=== PATIENT | male | born 1940 | race Caucasian/White ===

== ENCOUNTER 2016-05-10 14:00 | Emergency (ER) | payer OTHER, BC ==
[~2016-05-10] VITALS: Ht 162.6 cm; Wt 88.0 kg
[~2016-05-10 14:00] MED LIST: ACETAMINOPHEN-1 EAC3 PO; ACETAMINOPHEN325 M1 PO; ALLOPURINOL 30300 M2 PO; AVODART0.5 MG PO; CARDURA4 MG PO; CIPROFLOXACIN500 M1 PO; COUMADIN 4 MG TA4 M1 PO; COUMADIN6 MG PO; DILTIAZEM ER240 M1 PO; FLEXERIL PO; GEMFIBROZIL 60600 MG PO; GLYCOLAX POWDER17 G1 PO; IBUPROFEN 600600 M1 PO; INVANZ 1GM/NS 101 GM IV; LOPERAMIDE 2 MG2 MG PO; SYNTHROID100 MCG PO; TYLENOL P.M. E1 EAC3; ULTRAM 50MG TAB50 MG PO; [UNRECOGNIZED DRUG - OTHER] PO
[2016-05-10] MEDS ORDERED: COUMADIN 4 MG TA4 M1 PO (14:16)
[2016-05-10 15:08] LABS: ABSOLUTE NEUTROPHILS 3.4 thou/uL (1.4-8.2); BASOPHILS 1.2 % (0.0-2.0); EOSINOPHILS 6.9 % (0.0-3.0); HEMATOCRIT 42.2 % (42.0-52.0); HEMOGLOBIN 14.6 gm/dL (14.0-18.0); LYMPHOCYTES 15.7 % (24.0-44.0); MCHC 34.6 g/dL (28.0-37.0); MCV 95.2 fL (80.0-100.0); MONOCYTES 8.5 % (1.0-8.0); PLATELET COUNT 191 thou/uL (150-400); POLYS 67.7 % (36.0-66.0); RBC 4.43 mil/uL (4.50-6.00); RDW 13.5 % (10.5-14.5)
[2016-05-10 15:10] LABS: MANUAL DIFF NO
[2016-05-10 15:13] LABS: URINE BILIRUBIN NEGATIVE (Negative); URINE BLOOD NEGATIVE (Negative); URINE COLOR YELLOW; URINE GLUCOSE-RANDOM* NEGATIVE (Negative); URINE KETONES NEGATIVE (Negative); URINE LEUKOCYTES-REFLEX NEGATIVE (Negative); URINE PROTEIN (DIPSTICK) NEGATIVE (Negative); URINE UROBILINOGEN 0.2 E.U./dl (0.2-1.0)
[2016-05-10 15:20] LABS: CALCIUM 9.2 mg/dL (8.5-10.1); POTASSIUM 3.9 mmol/L (3.5-5.1)
[2016-05-10 15:24] LABS: ALBUMIN 4.1 g/dL (3.4-5.0); DIRECT BILIRUBIN 0.1 mg/dL (<0.1-0.3); TOTAL BILIRUBIN 0.4 mg/dL (<0.1-1.0); TOTAL PROTEIN 7.4 g/dL (6.4-8.2)
[2016-05-10 16:02] LABS: PROTIME 20.4 Seconds (9.3-11.4)
[2016-05-10] MEDS ORDERED: IBUPROFEN 600600 M1 PO (16:06)
== END 2016-05-10 16:32 | disposition home or self-care (01) ==
LOC: ER 14:00
PROVIDERS: Emergency Medicine
DX: S16.1XXA Strain of muscle, fascia and tendon at neck level, initial encounter (principal); I10 Essential (primary) hypertension; Z90.89 Acquired absence of other organs; V49.9XXA Car occupant (driver) (passenger) injured in unspecified traffic accident, initial encounter; Y93.I9 Activity, other involving external motion; Y92.488 Other paved roadways as the place of occurrence of the external cause; Y99.9 Unspecified external cause status

== ENCOUNTER → 2018-03-01 | Outpatient (CLI) | payer OTHER, BC | LOC: RAD 14:57 | DX: J84.10 Pulmonary fibrosis, unspecified (principal); R05 Cough ==

== ENCOUNTER → 2018-08-02 | Outpatient (CLI) | payer OTHER, BC ==
[~2018-08-02] VITALS: Ht 165.1 cm; Wt 88.0 kg
[~2018-08-02] MED LIST changes: +FINASTERIDE5 MG PO; +FLOMAX0.4 MG PO; +LOSARTAN POTASS50 MG PO
[2018-08-02 07:43] VITALS: BP 139/73
--- NOTE | 2018-08-02 09:16 | EKG ---
[place] [address] [facility] [place] [address] ELECTROCARDIOGRAM REPORT Name: RODNEY HANNA Room #: REG CLI [facility]#: [id number] ������������������ Admission: 08/02/18 ������������������ Attend Phys: Richy Banks MD, Discharge: ������������������ Date of : 36 Report #: [id number] ����������������������������������������������������������������� [id number] THIS REPORT FOR: //name// [facility] Test Date: 2018-08-02 Test Time: 07:35:45 Pat Name: RODNEY HANNA Department: Room: Gender: Windshield Installer: Louise BREWER : 1940 Requested By: Richy Banks Order Number: [id number] MD: Richy Banks Measurements Intervals [place] Rate: 63 P: 20 MS: 233 QRS: 25 QRSD: 93 T: 58 QT: 443 QTc: 454 Interpretive Statements Sinus rhythm Prolonged MS interval Abnormal R-wave progression, early transition Compared to ECG 12/30/2011 20:45:50 First degree AV block now present Sinus tachycardia no longer present Electronically Signed On 08-02-2018 9:16:38 CDT by Richy Banks [email or web address] ��������������������������������������������� <ELECTRONICALLY SIGNED> ���������������������������������������� By: Richy Banks MD, [facility] ��������������������������������������������� 08/02/18 0916 0735 0735 Richy Banks MD, [facility] /EPI
--- NOTE | 2018-08-02 09:24 | CATHLAB ---
[facility] [address] [place] [address] INVASIVE PROCEDURE REPORT Name: RODNEY HANNA Room #: REG CL [facility]#: [id number] ������������� Admission: 08/02/18 ������������� Attend Phys: Richy Banks, Discharge: ��� ������������� ��� Date of : 36 Date of Service: 08/02/18 0923 �� Report #: [id number] �������� ��������������������������������������������[id number] THIS REPORT FOR: //name// APPROVED REPORT Study performed: 08/02/2018 07:53:12 Patient Details The patient is a 78 year-old male Event Personnel Richy Banks Airframe And Power Plant Mechanic, Clara Ignacio RN RN, Felipe Matt RN, Angelia Tovar Monitor Procedures Performed Coronary Angiography Only [id number] [facility] Supravalvular Aortography Injection [id number] ISVA Indication Chest pain Procedure Narrative The Right Groin^ was infiltrated with 1% Lidocaine subcutaneous anesthesia. A PINNACLE 6FR Sheath #[id number] sheath was inserted into the RFA^. Coronary angiography was performed using coronary diagnostic catheters. The right coronary system was accessed and visualized with a JR5 catheter. The left coronary system was accessed and visualized with a JL4 catheter. An aortogram of the ascending aorta was performed. Closure device was deployed with a Fr MYNXGRIP 6/7F #[id number]. The patient tolerated the procedure well and there were no complications associated with the procedure. There was no hematoma. Intraoperative Conscious Sedation Sedation start time: 0800 Case end Time: 0835 Fentanyl 50 mcg Versed 1 mg Fluoro Time: 11.38 minutes Dose: DAP 62420.00 cGycm2 1798 mGy Contrast Type and Amount: Omnipaque 160 ml Coronary Angiography The patient's coronary anatomy is right dominant. [facility] [address] [place] [address] INVASIVE PROCEDURE REPORT Name: JACQUESRODNEYCHELSY PLUMMER Room #: REG CL [facility].#: [id number] ������������� Admission: 08/02/18 ������������� Attend Phys: Richy Banks, Discharge: ��� ������������� ��� Date of : 36 Date of Service: 08/02/18 0923 �� Report #: [id number] �������� ��������������������������������������������[id number] Diagnostic Cath Left Main Normal left main LAD Moderate 50% mid LAD stenosis. The LAD beyond this was not especially large in caliber. Diagonal 1 First diagonal branch was moderate in size and free of occlusive disease. Circumflex The circumflex was relatively small and nondominant OM1 First marginal branch exhibited mild proximal plaquing, small in caliber Right Coronary The right coronary was dominant and large in caliber. Angiographically normal R PDA Large posterior descending branch, angiographically normal RPLV Large posterolateral branch, angiographically normal Ramus Moderately large ramus branch with minimal 10-20% proximal plaquing Left Ventriculography Left Ventriculography was not performed. Supravalvular aortography demonstrated a calcified and trileaflet aortic valve. Mild aortic insufficiency. Mild dilatation of the ascending aorta. No dissection. Hemodynamics The aortic pressure is 177/66 mmHg with a mean of 107 mmHg. Conclusion 1. Moderate calcific aortic stenosis by echocardiography 2. Normal left main 3. LAD 50% mid vessel stenosis 3. Mild plaquing in non-dominant circumflex 4. RCA angiographically normal, dominant Recommendations Aggressive Medical Therapy ��������������������������������������������� <ELECTRONICALLY SIGNED> ���������������������������������������� By: Richy Banks MD, FACC ��������������������������������������������� 08/02/18922 2 2 Richy Banks MD, FAC /INF
== END | disposition home or self-care (01) ==
LOC: CATH 06:50
DX: I25.10 Atherosclerotic heart disease of native coronary artery without angina pectoris (principal); I35.0 Nonrheumatic aortic (valve) stenosis; I10 Essential (primary) hypertension; E78.5 Hyperlipidemia, unspecified; K21.9 Gastro-esophageal reflux disease without esophagitis; I42.9 Cardiomyopathy, unspecified; I48.91 Unspecified atrial fibrillation; G47.30 Sleep apnea, unspecified; Z79.01 Long term (current) use of anticoagulants; Z98.41 Cataract extraction status, right eye; Z87.891 Personal history of nicotine dependence; Z82.49 Family history of ischemic heart disease and other diseases of the circulatory system; Z98.42 Cataract extraction status, left eye; Z98.890 Other specified postprocedural states; Z87.442 Personal history of urinary calculi; Z79.899 Other long term (current) drug therapy

== ENCOUNTER 2019-03-25 06:52 | Inpatient (IN) | payer OTHER, BC ==
[2019-03-25] VITALS (8 sets, daily range): BP systolic 109–156; BP diastolic 60–94
[~2019-03-25] VITALS: Ht 162.6 cm; Wt 90.1 kg
[2019-03-25 07:36] LABS: ABSOLUTE NEUTROPHILS 10.2 thou/uL (1.4-8.2); BASOPHILS 1.2 % (0.0-2.0); EOSINOPHILS 0.9 % (0.0-3.0); HEMATOCRIT 40.6 % (42.0-52.0); HEMOGLOBIN 13.7 gm/dL (14.0-18.0); MCH 33.6 pg (26.0-34.0); MCHC 33.7 g/dL (28.0-37.0); MCV 99.7 fL (80.0-100.0); MONOCYTES 5.1 % (1.0-8.0); PLATELET COUNT 169 thou/uL (150-400); POLYS 88.8 % (36.0-66.0); RBC 4.07 mil/uL (4.50-6.00); RDW 13.5 % (10.5-14.5); WBC 11.5 thou/uL (4.0-11.0)
[2019-03-25] MEDS ORDERED: MELATONIN3 M1 PO (07:40)
[2019-03-25 07:43] LABS: CALCIUM 9.3 mg/dL (8.5-10.1); CREATININE 1.1 mg/dL (0.7-1.3); INR 2.9; POTASSIUM 3.9 mmol/L (3.5-5.1); PROTIME 30.3 Seconds (9.3-11.4)
[2019-03-25 07:49] LABS: ALBUMIN 4.3 g/dL (3.4-5.0); TOTAL BILIRUBIN 0.6 mg/dL (<0.1-1.0); TOTAL PROTEIN 8.1 g/dL (6.4-8.2)
[2019-03-25 08:22] LABS: URINE BILIRUBIN NEGATIVE (Negative); URINE BLOOD TRACE (Negative); URINE CLARITY CLEAR; URINE COLOR YELLOW; URINE GLUCOSE-RANDOM* NEGATIVE (Negative); URINE KETONES NEGATIVE (Negative); URINE LEUKOCYTES-REFLEX TRACE (Negative); URINE NITRITE-REFLEX NEGATIVE (Negative); URINE PROTEIN (DIPSTICK) NEGATIVE (Negative); URINE UROBILINOGEN 0.2 E.U./dl (0.2-1.0)
[2019-03-25 14:26] LABS: INR 1.6; PROTIME 16.2 Seconds (9.3-11.4)
--- NOTE | 2019-03-25 16:16 | NUR ---
DR FLORES IN TO SEE PT AND TALK ABOUT THE SURGERY. CONSENT SIGNED, AT SIDE, PT WAITING
[2019-03-26 05:01] LABS: HEMATOCRIT 29.7 % (42.0-52.0); MCH 33.9 pg (26.0-34.0); MCHC 33.2 g/dL (28.0-37.0); MCV 102.3 fL (80.0-100.0); RBC 2.9 mil/uL (4.50-6.00); RDW 13.8 % (10.5-14.5)
[2019-03-26 05:06] LABS: HEMOGLOBIN 9.9 gm/dL (14.0-18.0)
[2019-03-26 05:11] VITALS: BP 93/56
--- NOTE | 2019-03-26 05:12 | NUR ---
ASSUMED PT CARE AT 1900. PT IS ALERT AND ORIENTED. SPOUSE AND BEDSIDE. PT JUST RETURNED FOR SURGERY. RITA DRAIN IN PLACE. PT IS STABLE. VITAL SIGNS STABLE. PT VERBALIZES PAIN. TYLENOL ADMINISTERED WITH NO RELEIVE. OXYCODONE ADMINISTERED AND ALSO NAUSEA MEDICATION. PT IS STABLE. ASSESSMENT COMPLETED AND DOCUMENTED. EDCUATION ON EARLY AMBULATION IS DISCUSSED WITH PATIENT. SCHEDULED MEDS ADMINISTERED TO PT. TOLERATES INTAKE. DENIES ANY FURTHER NEEDS AT THIS TIME.
[2019-03-26 05:13] LABS: ALBUMIN 3.1 g/dL (3.4-5.0); CALCIUM 7.8 mg/dL (8.5-10.1); PHOSPHORUS 5.7 mg/dL (2.5-4.9); POTASSIUM 4.1 mmol/L (3.5-5.1)
[2019-03-26 05:15] LABS: CREATININE 2.5 mg/dL (0.7-1.3)
[2019-03-26 05:17] LABS: INR 1.3; PROTIME 12.6 Seconds (9.3-11.4)
[2019-03-26 12:00] VITALS: BP 108/51
[2019-03-26 13:56] LABS: HEMOGLOBIN 8.5 gm/dL (14.0-18.0); MCH 34.1 pg (26.0-34.0); MCHC 33.9 g/dL (28.0-37.0); MCV 100.6 fL (80.0-100.0); RBC 2.49 mil/uL (4.50-6.00); RDW 13.5 % (10.5-14.5); WBC 12.9 thou/uL (4.0-11.0)
[2019-03-26 14:19] LABS: ALBUMIN 3.1 g/dL (3.4-5.0); CREATININE 2.2 mg/dL (0.7-1.3); PHOSPHORUS 4.1 mg/dL (2.5-4.9); POTASSIUM 3.8 mmol/L (3.5-5.1)
[2019-03-26 16:00] VITALS: BP 118/54
--- NOTE | 2019-03-26 16:04 | NUR ---
ASSUMED CARE OF PT APPROX 1600 PREVIOUS RN NEEDED TO GO TO FILL IN A VOID IN ICU, GAVE PT'S ANTIEMETIC AND PAIN MEDICATION. PT HAS AMB IN HALLS SEVERAL TIMES. SPOUSE AT BEDSIDE. ENCOURAGED HIM TO USE CALL LIGHT FOR ANY NEEDS. SHIPMAN JUST PLACED FOR RETENTION PER REPORT. PT IN GOOD SPIRITS, WANTS TO NAP BEFORE THE GAME.
[2019-03-26 20:10] VITALS: BP 109/55
[2019-03-26 20:34] LABS: HEMATOCRIT 23.7 % (42.0-52.0); MCHC 33.6 g/dL (28.0-37.0); MCV 101.1 fL (80.0-100.0); RBC 2.34 mil/uL (4.50-6.00); RDW 13.9 % (10.5-14.5); WBC 11.9 thou/uL (4.0-11.0)
[2019-03-27 04:33] LABS: HEMATOCRIT 22.9 % (42.0-52.0); HEMOGLOBIN 7.7 gm/dL (14.0-18.0); MCH 34.2 pg (26.0-34.0); MCHC 33.7 g/dL (28.0-37.0); MCV 101.5 fL (80.0-100.0); RBC 2.26 mil/uL (4.50-6.00); RDW 13.8 % (10.5-14.5); WBC 11.3 thou/uL (4.0-11.0)
[2019-03-27 04:53] LABS: ALBUMIN 2.9 g/dL (3.4-5.0); CALCIUM 7.4 mg/dL (8.5-10.1); CREATININE 1.3 mg/dL (0.7-1.3); PHOSPHORUS 2.4 mg/dL (2.5-4.9); POTASSIUM 3.6 mmol/L (3.5-5.1)
--- NOTE | 2019-03-27 05:01 | NUR ---
ASSUMED PT CARE AT 1900. PT IS ALERT AND ORIENTED WITH NO SIGN OF DISTRESS NOTED IN PT. VERBALIZES PAIN AT INCISION SITE. PAIN MED ADMINISTERED TO PT. ASSESSMENT COMPLETED AND DOCUMENTED. SCHEDULED MEDS ADMINISTERED TO PT. TOLERATED PI INTAKE. PT BECOMES NAUSEATED AND ZOFRAN ADMINISTERED. GREEN EMESIS IS NOTED. PAIN MEDICATION ADMINISTERED. RITA DRAIN IN PLACE WITH OUTPUT OF 250CC. NO FURTHER NEEDS AT THIS TIME. CONTINUE TO MONITOR PATIENT.
[2019-03-27 05:15] VITALS: BP 122/60
[2019-03-27 07:16] LABS: INR 1.1; PROTIME 11.2 Seconds (9.3-11.4)
[2019-03-27 07:30] VITALS: BP 123/66
[2019-03-27 09:41] LABS: HEMATOCRIT 21.6 % (42.0-52.0); HEMOGLOBIN 7.3 gm/dL (14.0-18.0)
[2019-03-27 11:00] VITALS: BP 107/51
[2019-03-27 14:11] LABS: HEMATOCRIT 21.4 % (42.0-52.0); HEMOGLOBIN 7.3 gm/dL (14.0-18.0)
[2019-03-27 14:32] VITALS: BP 107/51; BP 135/60; BP 139/56
--- NOTE | 2019-03-27 14:38 | NUR ---
ASSUMED CARE OF PATIENT APPROX 0700. PT A&OX4, VSS, PAIN IN ABDOMEN RIGHT SIDE. PATIENT COMPLETED CT. PATIENT IS NPO THOUGHOUT DAY PER DOCTOR. APPROX 285 SANGUINEOUS DRANAIGE FROM RITA DRAIN. NO SIGNS OF DISTRESS WILL CONTINE TO MONITOR.
[2019-03-27 16:00] VITALS: BP 131/57
--- NOTE | 2019-03-27 17:46 | NUR ---
DR LONDON CANCEL TRANSFER TO MED/SURG FLOOR PT TO REMAIN ON CCU AND TELE.
--- NOTE | 2019-03-27 18:52 | NUR ---
MYSELF AND NUCLEAR MEDICINE TECHNOLOGIST CHANDA TRIED TO ESTABLISH NG TUBE BUT WHERE UNSUCCESSFUL. ER WILL SEND UP SMALLEST NG TUBE AND I WILL INSTRUCT NIGHT RN TO TRY AGAIN.
[2019-03-27 19:07] LABS: HEMATOCRIT 26.3 % (42.0-52.0); HEMOGLOBIN 8.9 gm/dL (14.0-18.0)
[2019-03-27 19:58] VITALS: BP 117/54
[2019-03-28 02:09] LABS: HEMATOCRIT 24.4 % (42.0-52.0); HEMOGLOBIN 8.2 gm/dL (14.0-18.0)
--- NOTE | 2019-03-28 05:05 | NUR ---
ASSUMED PT CARE AT 1900. PT IS ALERT AND ORIENTED WITH NO SIGN OF DISTRESS NOTED IN PT. NGT IN PLACE. PLACEMENT CONFIRMED. ASSESSMENT COMPLETED AND DOCUMENTED. RITA DRIAN IN PLACE. PAIN MED ADMINISTERED. SCHEDULED MEDS ADMINISTERED TO PT. RITA DRAIN CONTINUES TO DRAIN A LOT OF SANGINOUS DRAINAGE. CONTINUE TO MONITOR PATIENT. DENIES ANY FURTHER NEEDS AT THIS TIME.
[2019-03-28 05:37] VITALS: BP 139/69
[2019-03-28 07:25] VITALS: BP 159/76
[2019-03-28 11:45] VITALS: BP 147/66
[2019-03-28 13:56] LABS: HEMOGLOBIN 8.1 gm/dL (14.0-18.0)
[2019-03-28 16:05] VITALS: BP 152/48
--- NOTE | 2019-03-28 16:12 | NUR ---
Patient admits with acute appendicits, post op lap appy and ileus. Patient A/Ox4 with ng tube. patient resides at home with spouse. He reports steps in home and no difficulty with steps. Cont to drive and independent with adls and self care. He is discouraged with illness. Encouragement offered. Supportive family, 3 children. Therapy evals in process.
--- NOTE | 2019-03-28 16:22 | 2DMMODE ---
[facility] [address] [place] [address] 2 D/M-MODE ECHOCARDIOGRAM Name: RODNEY HANNA Room #: 213-P ADM IN M.R.#: [id number] Admission: 03/25/19 Attend Phys: Oseas Acosta MD Discharge: Date of : 36 Report #: [id number] THIS REPORT FOR: cc: Rene Daniels MD, Rene P. MD Lundgren, Craig H. MD [facility] ~ THIS REPORT FOR: //name// APPROVED REPORT Study performed: 03/28/2019 12:10:39 EXAM: Comprehensive 2D, Doppler, and color-flow Echocardiogram Patient Location: Bedside Room #: 213 Status: routine BSA: 1.92 HR: 76 bpm BP: 123/66 mmHg Rhythm: NSR Other Information Study Quality: Adequate Indications Atrial Fibrillation Hypertension/HDD 2D Dimensions RVDd: 38.63 mm IVSd: 10.78 (7-11mm) LVOT Diam: 23.27 (18-24mm) LVDd: 45.70 mm PWd: 11.06 (7-11mm) Ascending Ao: 30.12 (22-36mm) LVDs: 34.34 (25-40mm) Aortic Root: 33.18 mm Volumes Left Atrial Volume (Systole) Single Plane 4CH: 55.44 mL Single Plane 2CH: 84.00 mL LA ESV Index: 38.00 mL/m2 Aortic Valve AoV Peak Ziyad.: 3.88 m/s AO Peak Gr.: 60.14 mmHg LVOT Max P.27 mmHg [facility] [address] [place] [address] 2 D/M-MODE ECHOCARDIOGRAM Name: RODNEY HANNA Room #: 213-P [facility] IN M.R.#: [id number] Admission: 03/25/19 Attend Phys: Pamela Cody Discharge: Date of : 36 Report #: [id number] AO Mean Gr.: 34.17 mmHg LVOT Mean P.07 mmHg AO V2 Mean: 2.79 m/s LVOT Max V: 1.35 m/s AO V2 VTI: 96.71 cm LVOT Mean V: 0.97 m/s TOMMIE (VTI): 1.47 cm2 LVOT V1 VTI: 33.46 cm TOMMIE Vmax: 1.48 cm2 SV (LVOT): 142.25 mL Mitral Valve E/A Ratio: 0.9 MV Decel. Time: 147.17 ms MV E Max Ziyad.: 1.26 m/s MV A Ziyad.: 1.38 m/s MV PHT: 42.68 ms IVRT: 50.75 ms Pulmonary Valve PV Peak Ziyad.: 1.28 m/s PV Peak Gr.: 6.57 mmHg Pulmonary Vein P Vein S: 0.73 m/s P Vein A: 0.35 m/s P Vein D: 0.74 m/s P Vein A Dur.: 87.7 msec P Vein S/D Ratio: 0.99 Tricuspid Valve TR Peak Ziyad.: 3.33 m/s TR Peak Gr.: 44.24 mmHg PA Pressure: 44.00 mmHg Left Ventricle The left ventricle is normal size. There is normal LV segmental wall motion. There is normal left ventricular wall thickness. The left ventricular systolic function is normal. The left ventricular ejection fraction is within the normal range. LVEF is 55-60%. Mild diastolic dysfunction is present (impaired relaxation pattern). Right Ventricle The right ventricle is normal size. The right ventricular systolic function is normal. Atria Left atrium is dilated. Right atrium is at the upper limits of normal. Aortic Valve The aortic valve is moderately calcified, moderately stenotic. [address] [address] 2 D/M-MODE ECHOCARDIOGRAM Name: RODNEY HANNA Room #: 213-P [facility] IN ..#: [id number] Admission: 03/25/19 Attend Phys: Pamela Cody Discharge: Date of : 36 Report #: [id number] aortic regurgitation is present. Calculated aortic valve area is 1.5 cm2 with maximum pressure gradient of 60 mmHg and mean pressure gradient of 34 mmHg. Mitral Valve Mild mitral annular calcification Trace to mild mitral regurgitation. No evidence of mitral valve stenosis. Tricuspid Valve The tricuspid valve is normal in structure. There is mild tricuspid regurgitation. Pulmonary artery pressures approximately 50 mmHg There is moderate pulmonary hypertension. Pulmonic Valve The pulmonary valve is normal in structure. There is no pulmonic valvular regurgitation. Great Vessels The aortic root is normal in size. The inferior vena cava is not well visualized. Pericardium There is no pericardial effusion. <Conclusion> The left ventricular systolic function is normal. There is normal LV segmental wall motion. LVEF is 55-60%. Mild diastolic dysfunction The aortic valve is moderately calcified, moderately stenotic. No aortic insufficiency Calculated aortic valve area is 1.5 cm2 with maximum pressure gradient of 60 mmHg and mean pressure gradient of 34 mmHg. Mild mitral annular calcification. Trace to mild mitral regurgitation. There is mild tricuspid regurgitation. Pulmonary artery pressures approximately 50 mmHg There is no pericardial effusion. <ELECTRONICALLY SIGNED> By: Richy Banks MD, FACC 03/28/19 [phone] Richy Banks MD, FACC /INF
[2019-03-28 20:01] VITALS: BP 148/60
--- NOTE | 2019-03-28 20:33 | NUR ---
RECEIVED PT'S CARE AROUND 1300; PT. ON BED; AOX4; DURING ASSESSMENT C/O PAIN OVER ABDOMEN; PRN PAIN MEDICATION DUE; EDUCATED ABOUT PAIN MANAGEMENT; ST. UNDERSTANDING; HH 8.1; RITA DRAIN AROUND 15:00 OBTAINED 100 ML; DR. FLORES NOTIFIED; AT 17:00 75ML; AT 1830 30 ML; C/O ABDOMINAL; PRN PAIN MEDICATION GIVEN; PAIN RE-ASSESSMENT PT. ST. DECREASED PAIN; ST. PASSING FLATUS; ABDOMEN DISTENDED; BOWEL SOUNDS PRESENT; ASSESSMENT CHARGED; FOLLOWING POC; PASSED ON REPORT;
[2019-03-28 22:20] LABS: HEMATOCRIT 22.6 % (42.0-52.0); HEMOGLOBIN 7.7 gm/dL (14.0-18.0)
[2019-03-29] VITALS (7 sets, daily range): BP systolic 149–154; BP diastolic 58–74
--- NOTE | 2019-03-29 06:13 | NUR ---
ASSESSMENT: AT ONE TIME PT IS FRIENDLY, FLIRTY AND COMPLIANT WITH POC. OTHER TIMES PT IS CURSING STAFF, NOT WANTING TO COMPLY AND VOICING HIS OPINION OF HIS CARE. THIS RN GAVE MS 2MG AT 2130, EACH TIME AFTERWARDS PT REFUSED PAIN MEDICATION. IT WAS EXPLAINED TO PT THAT HE WAS NOT GOING TO BE AWAKEN TO SEE IF HE NEEDS PAIN MEDICATION OR IF HE WAS HAVING PAIN. PT EVEN ACCUSED THE TECH OF WATCHING TELEVISION IN HIS ROOM AND THAT "SHE SHOULD NOT BE PAID," WHEN ALL T STAFF MEMEBER WAS DOING WAS GETTING VSS AND WAITING FOR THE THE DYNAMAP TO CYCLE. THIS RN TOOK TIME OUT TO EXPLAIN ABOUT THE CALL BUTTONS, THE NPO STATUS, THE PRN STATUS AND TO UNDERSTAND THAT STAFF ARE DOING THEIR BEST TO CARE FOR EACH PT'S NEEDS. PLEASE ALL
[2019-03-29 07:04] LABS: HEMATOCRIT 24.1 % (42.0-52.0); HEMOGLOBIN 8.1 gm/dL (14.0-18.0)
[2019-03-29 09:03] LABS: ALBUMIN 2.6 g/dL (3.4-5.0); CALCIUM 7.3 mg/dL (8.5-10.1); CREATININE 0.8 mg/dL (0.7-1.3); PHOSPHORUS 1.8 mg/dL (2.5-4.9); POTASSIUM 3.3 mmol/L (3.5-5.1)
--- NOTE | 2019-03-29 16:37 | NUR ---
PT CARE ASSUMED APPROX 0700. ASSESSMENT CHARTED. DENIES SOA. REPORTS PAIN TO RITA DRAIN SITE. REPORTS ADEQUATE PAIN MANAGEMENT WITH MEDS. UP WITH MIN ASSIST. PT NGT CLAMPED ALL SHIFT AND PT TOLERATING. IVF AND MEDS GIVEN FOR CHANGES NOTED IN PT'S ELECTROLYTES. WILL MONITOR. PT TOLERATING POC. DENIES QUESTIONS OR CONCERNS REGARDING POC. NO DISTRESS NOTED.
[2019-03-30] VITALS (7 sets, daily range): BP systolic 106–169; BP diastolic 43–83
--- NOTE | 2019-03-30 07:39 | NUR ---
ASSUMED PT CARE AROUND 1915. PT WAS RESTING IN BED WITH C/O OF PAIN TO INCISIONAL AREA. PAIN MEDICATION GIVEN AND PT RESTED COMFORTABLY IN BED. PT WAS NOT HAPPY ABOUT BEING NPO AND WANTED ICE CHIPS. EDUCATED PT ON WHY NPO. PT ASSESSMENT CHARTED. WILL CONTINUE TO MONITOR PT PER PLAN OF CARE.
[2019-03-30 07:58] LABS: HEMOGLOBIN 8.5 gm/dL (14.0-18.0); MCHC 34.1 g/dL (28.0-37.0); MCV 99.9 fL (80.0-100.0); RBC 2.5 mil/uL (4.50-6.00); RDW 15.2 % (10.5-14.5); WBC 10.1 thou/uL (4.0-11.0)
[2019-03-30 08:06] LABS: ALBUMIN 2.7 g/dL (3.4-5.0); CALCIUM 7.5 mg/dL (8.5-10.1); PHOSPHORUS 1.5 mg/dL (2.5-4.9); POTASSIUM 3.5 mmol/L (3.5-5.1)
--- NOTE | 2019-03-30 08:57 | PATH ---
[facility] [address] [place] [address] PATHOLOGY RPT PROCEDURE Name: JACQUESRODNEYMYKE PLUMMER Room #: 213-P ADM IN M.R.#: [id number] Admission: 03/25/19 Date of : 36 Discharge: Report #: [id number] Path Case #: [id number] [facility] Accession Number: [id number] . 01 Material submitted: . appendix - APPENDIX . 01 Clinical history: . Acute appendicitis . 02 Diagnosis: Appendix, appendectomy: - Acute appendicitis and periappendicitis with focal rupture. (SK:[facility] 03/29/2019) [facility] 03/29/2019 0802 Local . 02 Electronically signed: . Tyree Daniels MD, Pathologist NPI- [id number] . 01 Gross description: . The specimen is received in formalin, labeled "Rodneymyke Hanna, appendix". Received in two pieces is a vermiform appendix measuring 9.3 cm in length by up to 0.5 cm in diameter upon reconstruction with a moderate amount of attached mesoappendix. The serosal surface is pale paiz to dusky rudd-paiz, shaggy in appearance. The surgical margin is closed with a line of kamille. The kamille are removed the new margin is inked black. Sectioning reveals a pinpoint to patent lumen, with a possible area of perforation/rupture located 6.0 cm from the proximal margin. The surrounding serosal surface is inked blue. The specimen is submitted representatively in cassettes A1 and A2, with the proximal margin and bisected tip submitted in cassette A1. The entire area of possible perforation/rupture is submitted in cassette A2. (CAA; 03/27/2019) QAC/QAC 03/27/2019 1421 Local . 02 Pathologist provided ICD-10: K35.80 . 02 CPT . 879496 Specimen Comment: A courtesy copy of this report has been sent to [phone] Specimen Comment: Report sent to Specimen Comment: A duplicate report has been generated due to demographic updates. Performed at: [address] [place] [address] PATHOLOGY RPT PROCEDURE Name: RODNEY HANNA Room #: 213-P ADM IN M.R.#: [id number] Admission: 03/25/19 Date of : 36 Discharge: Report #: [id number] Path Case #: [id number] [address] [place] [address] [address], [place], [place] [id number] MD Cornel Espinoza MD Phone: [phone] Performed at: [address] [id number] MD Leslie Hess MD Phone: [phone]
--- NOTE | 2019-03-30 16:27 | NUR ---
PT CARE ASSUMED APPROXIMATELY 0700. ASSESSMENTS CHARTED. DR MURRAY NOTIFIED ABOT LOW GRADE TEMPS. PT WALKED ON RA SATURATION 88. PT MEDICATIONS GIVEN CHARTED.
--- NOTE | 2019-03-30 19:24 | NUR ---
ASSUMED CARE OF PT APPROX, 1600. PT A&OX4. PT C/O PAIN RIGHT ABDOMEN, PAIN MEDICATION GIVEN. PATIENT REQUESTING ADVANCED DIET, DOCTOR PAGED. RITA DRAIN INTACT, SANGUINEOUS DRAINAGE. 3 LAP SITES FROM SURGERY C/D/I. NO SIGNS OF DISTRESS. WILL CONTINUE TO MONITOR.
--- NOTE | 2019-03-31 06:00 | NUR ---
No acute concerns overnight. pain to right upper quadrant controlled with current regimen. abdomen distended with hypoactive bowel sounds. pt has been tolerating clear liquid diet but would like to be advanced. Oneil drain intact and producing dark red liquid. a total of 200ml was collected from drain. on 3lnc. no s/s of acute distress. reports off to day shift rn
[2019-03-31 06:18] LABS: HEMATOCRIT 23.8 % (42.0-52.0); HEMOGLOBIN 8.1 gm/dL (14.0-18.0); MCH 33.7 pg (26.0-34.0); MCHC 34.1 g/dL (28.0-37.0); MCV 98.7 fL (80.0-100.0); PLATELET COUNT 218 thou/uL (150-400); RBC 2.41 mil/uL (4.50-6.00); RDW 15.2 % (10.5-14.5); WBC 9.1 thou/uL (4.0-11.0)
[2019-03-31 06:29] LABS: INR 1.1; PROTIME 11.4 Seconds (9.3-11.4)
[2019-03-31 06:41] LABS: CALCIUM 6.9 mg/dL (8.5-10.1); CREATININE 0.9 mg/dL (0.7-1.3); POTASSIUM 3.4 mmol/L (3.5-5.1)
[2019-03-31 08:13] LABS: ABSOLUTE NEUTROPHILS 7.1 thou/uL (1.4-8.2)
[2019-03-31 08:14] LABS: ANISOCYTOSIS 1+; MACROCYTES 1+; MICROCYTES 1+; PLATELET ESTIMATE NORMAL
--- NOTE | 2019-03-31 08:20 | NUR ---
Assess due to length of stay. S/P appendicitis and post op ileus. Had been npo/liquids x 6 days and diet newly advanced today. Low nutrition risk
[2019-03-31 09:15] VITALS: BP 120/46
[2019-03-31 15:05] VITALS: BP 107/69
[2019-03-31 15:10] VITALS: BP 164/67
--- NOTE | 2019-03-31 15:47 | NUR ---
DISCHARGE ANTICIPATED TO HOME WITH HOME HEALTH SERVICES TOMORROW. PATIENT REFERRAL [facility]ED TO [facility] PER REQUEST. CALL PLACED TO [facility] INTAKE, SPOKE WITH NEVIN DELEON. ADRIENNE TO FACILITATE PATIENTS HH NEEDS ONCE DISCHARGE/HOME HEALTH ORDERS OBTAINED. SHOULD PATIENT DISCHARGE TOMORROW, PLEASE FAX DISCHARGE/HH ORDERS AND DISCHARGE SUMMARY TO [phone]. [facility] CONTACT NUMBER IS [phone]. THANK YOU.
[2019-03-31 15:50] VITALS: BP 164/67
[2019-03-31 19:28] VITALS: BP 149/53
--- NOTE | 2019-03-31 19:30 | NUR ---
Assumed patient care at 0715. Vital signs have been stable. Acetaminophen 650mg po is scheduled for pain with minimal change. RITA Drain has had moderate output (see I & O's); serosanginious. IV Fluids discontinued this am, he was put on a regular diet. Patient has did well with fluid intake, has poor appetite at this time. He has expressed "worry" about being discharged "too soon." Bladder scanned per nursing technician and her instructor with verbal order from Dr Acosta. Bladder scan measured 443cc of urinary retention. Patient has been urinating fairly well and has refused to allow straight cath procedure. Patient is now on room air with no noted shortness of breath. IV in right forearm infiltrated this evening. Will attempt to access new site. On-coming nurse notified.
--- NOTE | 2019-04-01 05:15 | NUR ---
Pt had 3large loose stools overnight.abdomen still distended with active bs. sats have been fine without oxygen use. RUQ pain controlled with current regimen. ibrahima drain in place and intact. 100ml emptied from it. no s/s of distress. will cont to monitor
[2019-04-01 06:13] LABS: HEMATOCRIT 25.1 % (42.0-52.0); HEMOGLOBIN 8.4 gm/dL (14.0-18.0); MCH 33.4 pg (26.0-34.0); MCHC 33.5 g/dL (28.0-37.0); MCV 99.5 fL (80.0-100.0); RBC 2.52 mil/uL (4.50-6.00); WBC 8.4 thou/uL (4.0-11.0)
[2019-04-01 06:28] LABS: ALBUMIN 2.5 g/dL (3.4-5.0); CALCIUM 7.8 mg/dL (8.5-10.1); CREATININE 0.9 mg/dL (0.7-1.3); MAGNESIUM 2.3 mg/dL (1.8-2.4); PHOSPHORUS 2.9 mg/dL (2.5-4.9); POTASSIUM 4.1 mmol/L (3.5-5.1)
[2019-04-01 08:27] VITALS: BP 115/56
[2019-04-01 14:34] VITALS: BP 125/54
--- NOTE | 2019-04-01 18:30 | NUR ---
Assumed patient care at 0715. Vital signs stable. Pain is well managed with scheduled Acetaminophen. Patient has been urinating without difficulty. He has had two loose stools in the toilet. Patient is tolerating IV Antibiotics well. He does not like the meals here but has been requesting and receiving milk several x's a day. POC followed. at bedside this evening. Plan is to Discharge tomorrow or Wednesday. Will report to on-coming nurse.
[2019-04-01 19:19] VITALS: BP 134/55
--- NOTE | 2019-04-02 06:50 | NUR ---
Pt. rested quietly at intervals during the night when checked on during frequent rounds. Pain meds given for c/o abdominal pain (see emar) with some relief noted. He has been having some loose stools, but they seemed to have slowed down this am. Up to the bathroom with stand by assistance.
[2019-04-02 08:17] LABS: PROTIME 10.7 Seconds (9.3-11.4)
[2019-04-02 08:41] VITALS: BP 125/56
[2019-04-02 09:55] LABS: HEMATOCRIT 25.6 % (42.0-52.0); HEMOGLOBIN 8.4 gm/dL (14.0-18.0)
--- NOTE | 2019-04-02 11:16 | NUR ---
Assumed pt care at 7am.Pt in bed very anxious to discuss dc plan with Dr Lan today.Assessment completed.vss.Pt tolerated meds an diet.60ML bloody drainage emtied from ibrahima early this shift.Dr Lan here,no new order noted but he said pt will dc home tomorrow.Pt notified.Assisted pt to br some minutes ago for bm.No further c/o. Will continue to monitor.
[2019-04-02 16:30] VITALS: BP 135/52
[2019-04-02 19:23] VITALS: BP 132/86
--- NOTE | 2019-04-03 06:03 | NUR ---
Pt. rested quietly at intervals during the night when checked on during frequent rounds. He c/o abdominal pain and was given po pain meds (see emar) with some relief noted. Melatonin also given for c/o insomnia. Oneil drain intact to abdomen.
[2019-04-03 08:00] VITALS: BP 145/54
[2019-04-03] MEDS ORDERED: FLOMAX0.4 MG PO (13:00)
[2019-04-03] MEDS ORDERED: ACETAMINOPHEN325 M1 PO (13:00)
[2019-04-03] MEDS ORDERED: LOSARTAN POTASS50 MG PO (13:02)
[2019-04-03] MEDS ORDERED: COUMADIN 2 MG TA2 M1 PO (13:02)
[2019-04-03] MEDS ORDERED: KLOR-CON M2020 MEQ PO (13:15)
[2019-04-03] MEDS ORDERED: AUGMENTIN 875-1 EACH PO (13:15)
[2019-04-03 13:20] VITALS: BP 164/67
--- NOTE | 2019-04-03 20:49 | NUR ---
PT DISCHARGED HOME WITH HOME HEALTH, IV REMOVED. PATIENT GIVEN EDUCATION ON RITA DRAIN CARE. PT A&OX4, VSS, DENIED PAIN. NO SIGNS OF DISTRESS, IV REMOVED. ALL BELONGINGS WITH PATIENT.
--- NOTE | 2019-04-05 12:30 | EKG ---
[facility] [place] [address] [place] [address] ELECTROCARDIOGRAM REPORT Name: RODNEY HANNA Room #: 452-P [facility] IN M.R.#: [id number] Admission: 03/25/19 Attend Phys: Oseas Acosta MD Discharge: 04/03/19 Date of : 36 Report #: [id number] THIS REPORT FOR: cc: Rene Daniels MD, Rene P. MD Lundgren,Richy Fong MD [facility] ~ THIS REPORT FOR: //name// [facility] ED Test Date: 2019-03-25 Test Time: 09:11:27 Pat Name: RODNEY HANNA Department: Room: 213 Gender: M Leather Fitter: RIVERA : 1940 Requested By: Juan Francisco Ace Order Number: [id number] MD: Richy Banks Measurements Intervals [place] Rate: 91 P: 11 FL: 213 QRS: -8 QRSD: 97 T: 19 QT: 374 QTc: 461 Interpretive Statements Sinus rhythm Borderline prolonged FL interval Compared to ECG 08/02/2018 07:35:45 No significant changes Electronically Signed On 03-25-2019 9:51:10 SPINE SUPERVISOR by Richy Banks [email or web address] <ELECTRONICALLY SIGNED> By: Richy Banks MD, [facility] 03/25/19 0951 0 0 Richy Banks MD, [facility] /EPI
== END 2019-04-03 16:45 | disposition home health service (06) | DRG 338 ==
LOC: ER 06:52 → 2N 09:03 → EROBS 09:03 → 2N 09:20 → ENTRNSPT 03-30 16:43 → 4W 03-30 16:53 → CMPTRNSPT 03-31 12:28 → EDTRNSPTSTS 03-31 12:28 → ENTRNSPT 04-03 15:55 → 4W 04-03 16:45
PROVIDERS: Emergency Medicine; Surgery; ADMIT Hospitalist
PROC: 30233M1 Transfusion of Nonautologous Plasma Cryoprecipitate into Peripheral Vein, Percutaneous Approach (ICD-10-PCS; principal; 2019-03-25)
PROC: 0DTJ4ZZ Resection of Appendix, Percutaneous Endoscopic Approach (ICD-10-PCS; principal; 2019-03-25)
PROC: 0D9670Z Drainage of Stomach with Drainage Device, Via Natural or Artificial Opening (ICD-10-PCS; 2019-03-27)
PROC: 30233N1 Transfusion of Nonautologous Red Blood Cells into Peripheral Vein, Percutaneous Approach (ICD-10-PCS; 2019-03-27)
DX: K35.33 Acute appendicitis with perforation, localized peritonitis, and gangrene, with abscess (principal); E43 Unspecified severe protein-calorie malnutrition; N17.9 Acute kidney failure, unspecified; D68.9 Coagulation defect, unspecified; D62 Acute posthemorrhagic anemia; K56.7 Ileus, unspecified; E87.0 Hyperosmolality and hypernatremia; E89.0 Postprocedural hypothyroidism; I10 Essential (primary) hypertension; I48.91 Unspecified atrial fibrillation; G47.30 Sleep apnea, unspecified; M19.90 Unspecified osteoarthritis, unspecified site; E78.5 Hyperlipidemia, unspecified; E66.01 Morbid (severe) obesity due to excess calories; I35.9 Nonrheumatic aortic valve disorder, unspecified; R33.9 Retention of urine, unspecified; M10.9 Gout, unspecified; N40.1 Benign prostatic hyperplasia with lower urinary tract symptoms; R33.8 Other retention of urine; G47.00 Insomnia, unspecified; E83.39 Other disorders of phosphorus metabolism; E87.6 Hypokalemia; Z87.442 Personal history of urinary calculi; Z98.1 Arthrodesis status; Z98.41 Cataract extraction status, right eye; Z98.42 Cataract extraction status, left eye; Z79.01 Long term (current) use of anticoagulants; Z87.440 Personal history of urinary (tract) infections; Z86.19 Personal history of other infectious and parasitic diseases; Z79.899 Other long term (current) drug therapy; Z82.3 Family history of stroke; Z87.891 Personal history of nicotine dependence; Z68.34 Body mass index [BMI] 34.0-34.9, adult; Z80.8 Family history of malignant neoplasm of other organs or systems
CPT/HCPCS: 10047; 10081; 50010; 50101; 50249; 50411; 50555; 50558; 50739; 50740; 51489; 52265; 53307; 53310; 53312; 54022; 54118; 56462; 56525; 56526; 62110; 62900; 70005

== ENCOUNTER → 2019-08-01 | Outpatient (CLI) | payer OTHER, BC ==
[~2019-08-01] MED LIST changes: +AUGMENTIN 875-1 EACH PO; +COUMADIN 2 MG TA2 M1 PO; +KLOR-CON M2020 MEQ PO; +MELATONIN3 M1 PO
== END ==
LOC: SJCVC 13:27
PROVIDERS: ATTEND Internal Medicine
DX: I44.0 Atrioventricular block, first degree (principal); I48.0 Paroxysmal atrial fibrillation; I25.10 Atherosclerotic heart disease of native coronary artery without angina pectoris; I25.84 Coronary atherosclerosis due to calcified coronary lesion; I10 Essential (primary) hypertension; I35.9 Nonrheumatic aortic valve disorder, unspecified; I65.23 Occlusion and stenosis of bilateral carotid arteries; E78.5 Hyperlipidemia, unspecified; G47.33 Obstructive sleep apnea (adult) (pediatric); E78.2 Mixed hyperlipidemia; E03.9 Hypothyroidism, unspecified; Z82.49 Family history of ischemic heart disease and other diseases of the circulatory system; Z87.891 Personal history of nicotine dependence; Z79.899 Other long term (current) drug therapy; Z79.01 Long term (current) use of anticoagulants

== ENCOUNTER → 2019-10-02 | Outpatient (CLI) | payer OTHER, BC | LOC: SJCVC 10:56 | PROVIDERS: ATTEND Internal Medicine | DX: Z51.81 Encounter for therapeutic drug level monitoring (principal); Z79.01 Long term (current) use of anticoagulants ==

== ENCOUNTER → 2019-10-11 | Outpatient (CLI) | payer OTHER, BC | LOC: SJCVC 11:56 | PROVIDERS: ATTEND Internal Medicine | DX: Z51.81 Encounter for therapeutic drug level monitoring (principal); I48.0 Paroxysmal atrial fibrillation; G47.33 Obstructive sleep apnea (adult) (pediatric); I25.10 Atherosclerotic heart disease of native coronary artery without angina pectoris; I10 Essential (primary) hypertension; E78.00 Pure hypercholesterolemia, unspecified; Z68.34 Body mass index [BMI] 34.0-34.9, adult; Z79.01 Long term (current) use of anticoagulants; Z79.899 Other long term (current) drug therapy ==

== ENCOUNTER → 2019-10-25 | Outpatient (CLI) | payer OTHER, BC ==
[~2019-10-25] MED LIST changes: +VALIUM5 MG PO; +WARFARIN SODIUM4 MG PO
== END ==
LOC: SJCVC 10:59
PROVIDERS: ATTEND Internal Medicine
DX: Z51.81 Encounter for therapeutic drug level monitoring (principal); I48.0 Paroxysmal atrial fibrillation; I25.10 Atherosclerotic heart disease of native coronary artery without angina pectoris; I10 Essential (primary) hypertension; E78.2 Mixed hyperlipidemia; E78.00 Pure hypercholesterolemia, unspecified; E66.01 Morbid (severe) obesity due to excess calories; Z79.01 Long term (current) use of anticoagulants; Z79.899 Other long term (current) drug therapy

== ENCOUNTER 2019-10-27 11:44 | Emergency (ER) | payer OTHER, BC ==
[~2019-10-27] VITALS: Ht 162.6 cm; Wt 78.0 kg
[~2019-10-27 11:44] MED LIST changes: -VALIUM5 MG PO; -WARFARIN SODIUM4 MG PO
[2019-10-27] MEDS ORDERED: FLOMAX0.4 MG PO (12:19)
[2019-10-27] MEDS ORDERED: WARFARIN SODIUM4 MG PO ×2 (12:19)
[2019-10-27 12:49] LABS: URINE BILIRUBIN NEGATIVE (Negative); URINE BLOOD NEGATIVE (Negative); URINE CLARITY CLEAR; URINE COLOR YELLOW; URINE GLUCOSE-RANDOM* NEGATIVE (Negative); URINE KETONES NEGATIVE (Negative); URINE LEUKOCYTES-REFLEX NEGATIVE (Negative); URINE NITRITE-REFLEX NEGATIVE (Negative); URINE PROTEIN (DIPSTICK) TRACE (Negative); URINE SPECIFIC GRAVITY 1.025 (1.005-1.035); URINE UROBILINOGEN 0.2 E.U./dl (0.2-1.0)
[2019-10-27] MEDS ORDERED: VALIUM5 MG PO (13:19)
[2019-10-27 13:43] VITALS: BP 139/76
== END 2019-10-27 13:50 | disposition home or self-care (01) ==
LOC: ER 11:44
PROVIDERS: Physician Assistant
DX: M54.5 Low back pain (principal); I10 Essential (primary) hypertension; Z79.899 Other long term (current) drug therapy; Z79.01 Long term (current) use of anticoagulants

== ENCOUNTER → 2019-11-23 | Outpatient (CLI) | payer OTHER, BC ==
[~2019-11-23] MED LIST changes: +VALIUM5 MG PO; +WARFARIN SODIUM4 MG PO
== END ==
LOC: SJCVC 11:47
PROVIDERS: ATTEND Internal Medicine
DX: Z51.81 Encounter for therapeutic drug level monitoring (principal); I48.0 Paroxysmal atrial fibrillation; G47.33 Obstructive sleep apnea (adult) (pediatric); I10 Essential (primary) hypertension; I25.10 Atherosclerotic heart disease of native coronary artery without angina pectoris; E78.00 Pure hypercholesterolemia, unspecified; E66.01 Morbid (severe) obesity due to excess calories; Z68.41 Body mass index [BMI] 40.0-44.9, adult; Z79.01 Long term (current) use of anticoagulants; Z79.899 Other long term (current) drug therapy

== ENCOUNTER → 2019-11-30 | Outpatient (CLI) | payer OTHER, BC | LOC: SJCVC 11:33 | PROVIDERS: ATTEND Internal Medicine | DX: Z51.81 Encounter for therapeutic drug level monitoring (principal); Z87.891 Personal history of nicotine dependence; Z79.01 Long term (current) use of anticoagulants ==

== ENCOUNTER → 2019-12-14 | Outpatient (CLI) | payer OTHER, BC | LOC: SJCVC 10:39 | PROVIDERS: ATTEND Internal Medicine | DX: Z51.81 Encounter for therapeutic drug level monitoring (principal); Z79.01 Long term (current) use of anticoagulants ==

== ENCOUNTER → 2019-12-20 | Outpatient (CLI) | payer OTHER, BC | LOC: SJCVC 14:38 | PROVIDERS: ATTEND Internal Medicine | DX: Z51.81 Encounter for therapeutic drug level monitoring (principal); I48.0 Paroxysmal atrial fibrillation; G47.33 Obstructive sleep apnea (adult) (pediatric); I25.10 Atherosclerotic heart disease of native coronary artery without angina pectoris; E78.00 Pure hypercholesterolemia, unspecified; Z68.39 Body mass index [BMI] 39.0-39.9, adult; Z79.01 Long term (current) use of anticoagulants; Z79.899 Other long term (current) drug therapy ==

== ENCOUNTER → 2019-12-28 | Outpatient (CLI) | payer OTHER, BC | LOC: SJCVC 11:12 | PROVIDERS: ATTEND Internal Medicine | DX: Z51.81 Encounter for therapeutic drug level monitoring (principal); Z79.01 Long term (current) use of anticoagulants; Z79.899 Other long term (current) drug therapy ==

== ENCOUNTER → 2020-01-31 | Outpatient (CLI) | payer OTHER, BC | LOC: SJCVC 14:05 | PROVIDERS: ATTEND Internal Medicine | DX: I44.0 Atrioventricular block, first degree (principal); I25.10 Atherosclerotic heart disease of native coronary artery without angina pectoris; I48.0 Paroxysmal atrial fibrillation; I35.9 Nonrheumatic aortic valve disorder, unspecified; I10 Essential (primary) hypertension; I65.23 Occlusion and stenosis of bilateral carotid arteries; E78.5 Hyperlipidemia, unspecified; G47.33 Obstructive sleep apnea (adult) (pediatric); Z79.01 Long term (current) use of anticoagulants; Z79.899 Other long term (current) drug therapy; Z87.891 Personal history of nicotine dependence ==

== ENCOUNTER → 2020-02-13 | Outpatient (CLI) | payer OTHER, BC | LOC: SJCVC 11:08 | PROVIDERS: ATTEND Internal Medicine | DX: Z51.81 Encounter for therapeutic drug level monitoring (principal); I48.0 Paroxysmal atrial fibrillation; G47.33 Obstructive sleep apnea (adult) (pediatric); I10 Essential (primary) hypertension; I25.10 Atherosclerotic heart disease of native coronary artery without angina pectoris; E78.2 Mixed hyperlipidemia; E66.9 Obesity, unspecified; Z68.39 Body mass index [BMI] 39.0-39.9, adult; Z79.01 Long term (current) use of anticoagulants; Z79.899 Other long term (current) drug therapy ==

== ENCOUNTER → 2020-02-27 | Outpatient (CLI) | payer OTHER, BC | LOC: SJCVC 11:04 | PROVIDERS: ATTEND Internal Medicine | DX: Z51.81 Encounter for therapeutic drug level monitoring (principal); I48.0 Paroxysmal atrial fibrillation; G47.33 Obstructive sleep apnea (adult) (pediatric); I25.10 Atherosclerotic heart disease of native coronary artery without angina pectoris; I10 Essential (primary) hypertension; E78.2 Mixed hyperlipidemia; E78.00 Pure hypercholesterolemia, unspecified; E66.01 Morbid (severe) obesity due to excess calories; Z79.01 Long term (current) use of anticoagulants ==

== ENCOUNTER → 2020-04-03 | Outpatient (CLI) | payer OTHER, BC ==
[2020-04-03 16:08] LABS: CREATININE 1.1 mg/dL (0.7-1.3)
== END ==
LOC: CAT 15:09 → LAB 15:09
PROVIDERS: ATTEND Family Medicine
DX: S39.81XA Other specified injuries of abdomen, initial encounter (principal); S29.8XXA Other specified injuries of thorax, initial encounter; I25.10 Atherosclerotic heart disease of native coronary artery without angina pectoris; K57.30 Diverticulosis of large intestine without perforation or abscess without bleeding; X58.XXXA Exposure to other specified factors, initial encounter; Y93.89 Activity, other specified; Y92.89 Other specified places as the place of occurrence of the external cause; Y99.8 Other external cause status

== ENCOUNTER → 2020-04-24 | Outpatient (CLI) | payer OTHER, BC | LOC: SJCVC 13:25 | PROVIDERS: ATTEND Internal Medicine | DX: Z51.81 Encounter for therapeutic drug level monitoring (principal); I48.0 Paroxysmal atrial fibrillation; I25.10 Atherosclerotic heart disease of native coronary artery without angina pectoris; E03.9 Hypothyroidism, unspecified; G47.33 Obstructive sleep apnea (adult) (pediatric); I08.0 Rheumatic disorders of both mitral and aortic valves; E78.5 Hyperlipidemia, unspecified; E78.00 Pure hypercholesterolemia, unspecified; E66.01 Morbid (severe) obesity due to excess calories; Z68.41 Body mass index [BMI] 40.0-44.9, adult; Z79.01 Long term (current) use of anticoagulants ==

== ENCOUNTER → 2020-05-16 | Outpatient (CLI) | payer OTHER, BC | LOC: CAT 14:47 | PROVIDERS: ATTEND Internal Medicine | DX: J84.10 Pulmonary fibrosis, unspecified (principal); R91.8 Other nonspecific abnormal finding of lung field; I25.10 Atherosclerotic heart disease of native coronary artery without angina pectoris ==

== ENCOUNTER → 2020-05-20 | Outpatient (CLI) | payer OTHER, BC | LOC: SJCVC 13:19 | PROVIDERS: ATTEND Internal Medicine | DX: Z51.81 Encounter for therapeutic drug level monitoring (principal); Z79.01 Long term (current) use of anticoagulants ==

== ENCOUNTER → 2020-05-31 | Outpatient (CLI) | payer OTHER, BC | LOC: SJCVC 10:17 | PROVIDERS: ATTEND Internal Medicine | DX: Z51.81 Encounter for therapeutic drug level monitoring (principal); Z79.01 Long term (current) use of anticoagulants; Z79.891 Long term (current) use of opiate analgesic; Z79.899 Other long term (current) drug therapy; E03.9 Hypothyroidism, unspecified; I25.10 Atherosclerotic heart disease of native coronary artery without angina pectoris; G47.33 Obstructive sleep apnea (adult) (pediatric); M35.3 Polymyalgia rheumatica; Z87.891 Personal history of nicotine dependence; Z72.89 Other problems related to lifestyle ==

== ENCOUNTER → 2020-06-14 | Outpatient (CLI) | payer OTHER, BC | LOC: SJCVC 11:14 | PROVIDERS: ATTEND Internal Medicine | DX: Z51.81 Encounter for therapeutic drug level monitoring (principal); I48.0 Paroxysmal atrial fibrillation; G47.33 Obstructive sleep apnea (adult) (pediatric); I25.10 Atherosclerotic heart disease of native coronary artery without angina pectoris; E78.2 Mixed hyperlipidemia; I10 Essential (primary) hypertension; E78.00 Pure hypercholesterolemia, unspecified; E66.9 Obesity, unspecified; Z68.34 Body mass index [BMI] 34.0-34.9, adult; Z79.01 Long term (current) use of anticoagulants; Z79.899 Other long term (current) drug therapy ==

== ENCOUNTER → 2020-06-21 | Outpatient (CLI) | payer OTHER, BC | LOC: SJCVC 11:44 | PROVIDERS: ATTEND Internal Medicine | DX: Z51.81 Encounter for therapeutic drug level monitoring (principal); I48.0 Paroxysmal atrial fibrillation; E03.9 Hypothyroidism, unspecified; G47.33 Obstructive sleep apnea (adult) (pediatric); I65.23 Occlusion and stenosis of bilateral carotid arteries; I25.10 Atherosclerotic heart disease of native coronary artery without angina pectoris; I10 Essential (primary) hypertension; E78.2 Mixed hyperlipidemia; E66.01 Morbid (severe) obesity due to excess calories; Z68.39 Body mass index [BMI] 39.0-39.9, adult; Z79.01 Long term (current) use of anticoagulants; Z79.899 Other long term (current) drug therapy ==

== ENCOUNTER → 2020-06-28 | Outpatient (CLI) | payer OTHER, BC | LOC: SJCVC 14:11 | PROVIDERS: ATTEND Internal Medicine | DX: Z51.81 Encounter for therapeutic drug level monitoring (principal); I48.0 Paroxysmal atrial fibrillation; I65.23 Occlusion and stenosis of bilateral carotid arteries; I25.10 Atherosclerotic heart disease of native coronary artery without angina pectoris; I10 Essential (primary) hypertension; I08.0 Rheumatic disorders of both mitral and aortic valves; E78.5 Hyperlipidemia, unspecified; N40.0 Benign prostatic hyperplasia without lower urinary tract symptoms; E03.9 Hypothyroidism, unspecified; G47.33 Obstructive sleep apnea (adult) (pediatric); E66.9 Obesity, unspecified; Z68.39 Body mass index [BMI] 39.0-39.9, adult; Z79.01 Long term (current) use of anticoagulants ==

== ENCOUNTER → 2020-07-05 | Outpatient (CLI) | payer OTHER, BC | LOC: SJCVC 11:10 | PROVIDERS: ATTEND Internal Medicine | DX: Z51.81 Encounter for therapeutic drug level monitoring (principal); I25.10 Atherosclerotic heart disease of native coronary artery without angina pectoris; G47.33 Obstructive sleep apnea (adult) (pediatric); E03.9 Hypothyroidism, unspecified; Z79.01 Long term (current) use of anticoagulants; Z79.899 Other long term (current) drug therapy; Z82.49 Family history of ischemic heart disease and other diseases of the circulatory system; Z87.891 Personal history of nicotine dependence; Z72.89 Other problems related to lifestyle ==

== ENCOUNTER → 2020-07-24 | Outpatient (CLI) | payer OTHER, BC | LOC: SJCVC 13:25 | PROVIDERS: ATTEND Internal Medicine | DX: Z51.81 Encounter for therapeutic drug level monitoring (principal); I48.0 Paroxysmal atrial fibrillation; G47.33 Obstructive sleep apnea (adult) (pediatric); I25.10 Atherosclerotic heart disease of native coronary artery without angina pectoris; I65.23 Occlusion and stenosis of bilateral carotid arteries; E78.2 Mixed hyperlipidemia; E78.00 Pure hypercholesterolemia, unspecified; I10 Essential (primary) hypertension; M06.9 Rheumatoid arthritis, unspecified; Z68.41 Body mass index [BMI] 40.0-44.9, adult; Z79.01 Long term (current) use of anticoagulants; Z79.899 Other long term (current) drug therapy ==

== ENCOUNTER → 2020-08-06 | Outpatient (CLI) | payer OTHER, BC | LOC: SJCVC 10:11 | PROVIDERS: ATTEND Internal Medicine | DX: Z51.81 Encounter for therapeutic drug level monitoring (principal); E03.9 Hypothyroidism, unspecified; G47.33 Obstructive sleep apnea (adult) (pediatric); I48.0 Paroxysmal atrial fibrillation; I10 Essential (primary) hypertension; I25.10 Atherosclerotic heart disease of native coronary artery without angina pectoris; E78.5 Hyperlipidemia, unspecified; E66.01 Morbid (severe) obesity due to excess calories; Z79.01 Long term (current) use of anticoagulants ==

== ENCOUNTER → 2020-08-19 | Outpatient (CLI) | payer OTHER, BC | LOC: CAT 13:24 | PROVIDERS: ATTEND Internal Medicine | DX: J84.10 Pulmonary fibrosis, unspecified (principal); R91.1 Solitary pulmonary nodule; R91.8 Other nonspecific abnormal finding of lung field ==

== ENCOUNTER → 2020-08-30 | Outpatient (CLI) | payer OTHER, BC | LOC: SJCVC 15:25 | PROVIDERS: ATTEND Internal Medicine | DX: Z51.81 Encounter for therapeutic drug level monitoring (principal); I48.0 Paroxysmal atrial fibrillation; E03.9 Hypothyroidism, unspecified; G47.33 Obstructive sleep apnea (adult) (pediatric); I65.23 Occlusion and stenosis of bilateral carotid arteries; I10 Essential (primary) hypertension; I25.10 Atherosclerotic heart disease of native coronary artery without angina pectoris; E78.2 Mixed hyperlipidemia; E66.01 Morbid (severe) obesity due to excess calories; Z68.41 Body mass index [BMI] 40.0-44.9, adult; Z79.01 Long term (current) use of anticoagulants; Z79.899 Other long term (current) drug therapy ==

== ENCOUNTER → 2020-09-19 | Outpatient (CLI) | payer OTHER, BC | LOC: SJCVC 12:47 | PROVIDERS: ATTEND Internal Medicine | DX: Z51.81 Encounter for therapeutic drug level monitoring (principal); I48.0 Paroxysmal atrial fibrillation; I25.10 Atherosclerotic heart disease of native coronary artery without angina pectoris; I10 Essential (primary) hypertension; E78.5 Hyperlipidemia, unspecified; E78.00 Pure hypercholesterolemia, unspecified; E66.01 Morbid (severe) obesity due to excess calories; Z68.41 Body mass index [BMI] 40.0-44.9, adult; Z79.01 Long term (current) use of anticoagulants; Z79.899 Other long term (current) drug therapy ==

== ENCOUNTER → 2020-10-17 | Outpatient (CLI) | payer OTHER, BC | LOC: SJCVC 10:07 | PROVIDERS: ATTEND Internal Medicine | DX: Z51.81 Encounter for therapeutic drug level monitoring (principal); K21.9 Gastro-esophageal reflux disease without esophagitis; E78.00 Pure hypercholesterolemia, unspecified; I10 Essential (primary) hypertension; Z79.01 Long term (current) use of anticoagulants; Z79.82 Long term (current) use of aspirin; Z79.899 Other long term (current) drug therapy; Z88.8 Allergy status to other drugs, medicaments and biological substances; Z88.0 Allergy status to penicillin; Z72.89 Other problems related to lifestyle ==

== ENCOUNTER → 2020-10-30 | Outpatient (CLI) | payer OTHER, BC | LOC: CAT 10-23 14:22 | PROVIDERS: ATTEND Internal Medicine | DX: R04.2 Hemoptysis (principal); R91.8 Other nonspecific abnormal finding of lung field ==

== ENCOUNTER → 2020-10-30 | Outpatient (CLI) | payer OTHER, BC ==
[~2020-10-30] MED LIST changes: +ALLOPURINOL 30300 M1 PO; -ALLOPURINOL 30300 M2 PO; +DIAZEPAM 5 MG5 M1 PO; +PREDNISONE 1 MG1 M1 PO; +SYNTHROID100 MC1 PO; -SYNTHROID100 MCG PO; +TUMS X-STR300 MG PO; +TYLENOL325 MG PO
== END ==
LOC: SJCVCIMAG 07:35
PROVIDERS: ATTEND Internal Medicine
DX: I44.0 Atrioventricular block, first degree (principal); I49.8 Other specified cardiac arrhythmias; I08.0 Rheumatic disorders of both mitral and aortic valves; I25.10 Atherosclerotic heart disease of native coronary artery without angina pectoris; I48.0 Paroxysmal atrial fibrillation; I10 Essential (primary) hypertension; I65.23 Occlusion and stenosis of bilateral carotid arteries; E78.5 Hyperlipidemia, unspecified; G47.33 Obstructive sleep apnea (adult) (pediatric); Z79.01 Long term (current) use of anticoagulants; Z79.899 Other long term (current) drug therapy; Z72.89 Other problems related to lifestyle; Z87.891 Personal history of nicotine dependence

== ENCOUNTER → 2020-11-12 | Outpatient (CLI) | payer OTHER, BC | LOC: CAT 14:18 | PROVIDERS: ATTEND Internal Medicine | DX: J84.10 Pulmonary fibrosis, unspecified (principal); R91.8 Other nonspecific abnormal finding of lung field; R04.2 Hemoptysis; I25.10 Atherosclerotic heart disease of native coronary artery without angina pectoris; I70.0 Atherosclerosis of aorta; M47.814 Spondylosis without myelopathy or radiculopathy, thoracic region ==

== ENCOUNTER 2020-11-15 08:51 | Inpatient (IN) | payer OTHER, BC ==
[~2020-11-15] VITALS: Ht 162.6 cm; Wt 108.1 kg
[2020-11-15 09:40] VITALS: BP 177/67
[2020-11-15 10:16] LABS: PROTIME 10.9 Seconds (10.5-12.1)
[2020-11-15 18:00] VITALS: BP 158/99
--- NOTE | 2020-11-15 18:05 | NUR ---
PT ORIENTED TO ROOM AND UNIT, BED LOW AND LOCKED, SIDE RAILS UPX3, CALL LIGHT IN REACH, PT ON 3LNC, RIGHT SIDED CHEST TUBE TO -20CM WALL SUXN, TELE APPLIED. WILL CONTINEU TO ASSESS.
[2020-11-15 19:59] VITALS: BP 177/91
[2020-11-16 00:19] VITALS: BP 154/95
[2020-11-16 04:00] VITALS: BP 174/85
[2020-11-16 06:43] LABS: URINE BILIRUBIN NEGATIVE (Negative); URINE BLOOD 3+ (Negative); URINE COLOR YELLOW; URINE GLUCOSE-RANDOM* NEGATIVE (Negative); URINE KETONES NEGATIVE (Negative); URINE LEUKOCYTES-REFLEX NEGATIVE (Negative); URINE NITRITE-REFLEX NEGATIVE (Negative); URINE PROTEIN (DIPSTICK) TRACE (Negative); URINE SPECIFIC GRAVITY 1.025 (1.005-1.035); URINE UROBILINOGEN 0.2 E.U./dl (0.2-1.0)
[2020-11-16 06:44] LABS: URINE CLARITY HAZY
[2020-11-16 07:08] LABS: CASTS None Seen /LPF (None Seen); SQUAMOUS 0-3 Few /LPF (0-3)
[2020-11-16 07:12] LABS: BACTERIA-REFLEX None Seen /HPF (None Seen); CRYSTALS None Seen /LPF (None Seen); URINE RBC >20 Many /HPF (NONE SEEN); URINE WBC-REFLEX 0-5 Rare /HPF (0-5)
[2020-11-16 07:35] VITALS: BP 170/74
[2020-11-16 08:03] LABS: HEMATOCRIT 39.8 % (42.0-52.0); HEMOGLOBIN 13.3 gm/dL (14.0-18.0); MCH 33.9 pg (26.0-34.0); MCHC 33.5 g/dL (28.0-37.0); MCV 101.2 fL (80.0-100.0); RBC 3.93 mil/uL (4.50-6.00); RDW 14.8 % (10.5-14.5); WBC 11.6 thou/uL (4.0-11.0)
[2020-11-16 08:13] LABS: CALCIUM 9.2 mg/dL (8.5-10.1); POTASSIUM 3.7 mmol/L (3.5-5.1)
--- NOTE | 2020-11-16 09:50 | NUR ---
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
[2020-11-16 11:15] VITALS: BP 143/74
[2020-11-16 15:03] LABS: HEMATOCRIT 37.9 % (42.0-52.0); HEMOGLOBIN 12.6 gm/dL (14.0-18.0)
[2020-11-16 15:20] VITALS: BP 129/45
[2020-11-16 15:43] LABS: URINE BILIRUBIN NEGATIVE (Negative); URINE BLOOD 3+ (Negative); URINE CLARITY CLEAR; URINE COLOR YELLOW; URINE GLUCOSE-RANDOM* NEGATIVE (Negative); URINE KETONES NEGATIVE (Negative); URINE LEUKOCYTES-REFLEX NEGATIVE (Negative); URINE NITRITE-REFLEX NEGATIVE (Negative); URINE PROTEIN (DIPSTICK) NEGATIVE (Negative); URINE UROBILINOGEN 0.2 E.U./dl (0.2-1.0)
[2020-11-16 16:06] LABS: CASTS None Seen /LPF (None Seen); SQUAMOUS 0-3 Few /LPF (0-3); URINE RBC >20 Many /HPF (NONE SEEN); URINE WBC-REFLEX 0-5 Rare /HPF (0-5)
[2020-11-16 16:07] LABS: BACTERIA-REFLEX None Seen /HPF (None Seen); CRYSTALS None Seen /LPF (None Seen)
[2020-11-16 20:36] VITALS: BP 145/80
[2020-11-17 03:46] LABS: ABSOLUTE NEUTROPHILS 7.3 thou/uL (1.4-8.2); BASOPHILS 0.3 % (0.0-2.0); EOSINOPHILS 2.3 % (0.0-3.0); HEMOGLOBIN 12.1 gm/dL (14.0-18.0); LYMPHOCYTES 8.2 % (24.0-44.0); MCH 35.2 pg (26.0-34.0); MCHC 34.5 g/dL (28.0-37.0); MONOCYTES 6.6 % (1.0-8.0); PLATELET COUNT 188 thou/uL (150-400); POLYS 82.6 % (36.0-66.0); RBC 3.43 mil/uL (4.50-6.00); RDW 14.6 % (10.5-14.5); WBC 8.8 thou/uL (4.0-11.0)
[2020-11-17 03:48] VITALS: BP 148/72
[2020-11-17 04:34] LABS: ALBUMIN 3.2 g/dL (3.4-5.0); CALCIUM 8.3 mg/dL (8.5-10.1); CREATININE 0.9 mg/dL (0.7-1.3); MAGNESIUM 2.2 mg/dL (1.8-2.4); POTASSIUM 3.6 mmol/L (3.5-5.1); TOTAL BILIRUBIN 0.3 mg/dL (0.2-1.0); TOTAL PROTEIN 6.2 g/dL (6.4-8.2)
[2020-11-17 08:20] VITALS: BP 151/83
--- NOTE | 2020-11-17 08:29 | NUR ---
PROTONIX GTT INFUSING, PT STATES NO FURTHER N/V SINCE YESTERDAY MORNING, C/O R SIDE PAIN FROM CT - PRN PAIN MEDS GIVEN VOIDING PER URINAL, REPOSITONING NEEDED, VSS, NPO FOR EGD IN AM, REPORT GIVEN TO NEXT SHIFT TO CON'T WITH PPOC.
--- NOTE | 2020-11-17 16:10 | NUR ---
Assumed care of pt this AM. Pt is A&O x4, 1L NC. Chest tube in place & patent. Pt NPO this AM for EGD. EGD completed & advance diet as tolerated. Protonix gtt d/c'ed. Bath given. Pt denies any chest pain. Pain at chest tube insertion site. PRN pain medication given. Will continue to monitor pts needs.
[2020-11-17 16:40] VITALS: BP 148/59
[2020-11-17 20:27] VITALS: BP 143/80
--- NOTE | 2020-11-18 03:31 | NUR ---
PT PROGRESSING TOWARDS D/C GOALS. VSS. AFEBRILE. SATS WNL ON 1LNC. HYDROCODONE GIVEN FOR C/O PAIN TO RIGHT CT SITE. R CT SITE HAS SMALL AMT DRY BLOODY DRAINAGE NOTED. CT TO -20CM SUCTON. DRAINING SMALL AMTS SEROSANGINOUS DRAINAGE, PT SLEPT MOST OF NIGHT . NO S/S RESPIRATORY DISTRESS.
[2020-11-18 03:54] VITALS: BP 136/60
[2020-11-18 08:00] VITALS: BP 152/70
--- NOTE | 2020-11-18 08:11 | EKG ---
[place] [address] [facility] [place] [address] ELECTROCARDIOGRAM REPORT Name: RODNEY HANNA Room #: 212-P ADM IN M.R.#: [id number] Admission: 11/15/20 Attend Phys: Bipin Gleason MD Discharge: Date of : 36 Report #: [id number] [facility] Test Date: 2020-11-18 Test Time: 05:48:08 Pat Name: RODNEY HANNA Department: Room: 212 P Gender: M Automobile Mechanic Supervisor: SPIKE : 1940 Requested By: Ynes Cook Order Number: [id number] MD: Anmol Miner Measurements Intervals Alleene Rate: 65 P: 0 SC: 223 QRS: 0 QRSD: 93 T: 33 QT: 483 QTc: 503 Interpretive Statements Sinus rhythm Atrial premature complex Sinus pause Prolonged SC interval Compared to ECG 03/25/2019 09:11:27 Atrial premature complex(es) now present Sinus pause or arrest now present Prolonged QT interval now present Electronically Signed On 11-18-2020 8:11:08 CDT by Anmol Miner [email or web address] <ELECTRONICALLY SIGNED> By: Anmol Miner MD, [facility] [id number] Anmol Miner MD, [facility] /EPI
--- NOTE | 2020-11-18 08:52 | NUR ---
HR FOUND TO BE FLUCTUATING FROM 30S TO 60S BUT STAYING TOO FREQUENTLY IN THE 30S. CA INTERVALS VARIED BUT DID NOT ELONGATE AND DROP. LONG PAUSES NOTED. BOILERMAKER LOFTSMAN NOTIFIED EKG DONE. CARDIOLOGY NOTIFIED. DR RAI CAME TO SEE PT THIS AM. PT WAS MADE NPO IN CASE OF TEST OR PROCEDURE.
[2020-11-18 11:00] VITALS: BP 125/52
[2020-11-18 15:25] VITALS: BP 130/73
[2020-11-18 19:40] VITALS: BP 147/64
[2020-11-18 19:42] VITALS: BP 147/64
[2020-11-19 03:25] VITALS: BP 114/65
[2020-11-19 06:50] LABS: ABSOLUTE NEUTROPHILS 5.9 thou/uL (1.4-8.2); BASOPHILS 0.6 % (0.0-2.0); EOSINOPHILS 4.1 % (0.0-3.0); HEMATOCRIT 35.7 % (42.0-52.0); LYMPHOCYTES 11.6 % (24.0-44.0); MCH 34.1 pg (26.0-34.0); MCHC 33.8 g/dL (28.0-37.0); MCV 100.8 fL (80.0-100.0); PLATELET COUNT 205 thou/uL (150-400); POLYS 76.7 % (36.0-66.0); RBC 3.54 mil/uL (4.50-6.00); RDW 14.6 % (10.5-14.5); WBC 7.7 thou/uL (4.0-11.0)
[2020-11-19 07:07] LABS: CALCIUM 8.3 mg/dL (8.5-10.1); CREATININE 0.9 mg/dL (0.7-1.3); MAGNESIUM 2.5 mg/dL (1.8-2.4); POTASSIUM 4.2 mmol/L (3.5-5.1)
[2020-11-19 07:50] VITALS: BP 150/58
--- NOTE | 2020-11-19 08:16 | NUR ---
DR SIMONS ORDERED PT CHEST TUBE TO BE WATER SEAL.ON ROOM AIR.PAIN WELL CONTROLLED.MONITOR SHOWS CAREY WITH PAUSES;PT STATES HE FEELS FINE.POC CONTINUED.
[2020-11-19 11:20] VITALS: BP 139/60
[2020-11-19 15:35] VITALS: BP 146/61
--- NOTE | 2020-11-19 16:04 | NUR ---
Met with patient who admits with pneumothorax post Bronchoscopy. Patient reports independent with adls lpta. He resides in [address] home with . Reports woodworking shop in basement. He reports has two handrails and no difficulty with steps. Has fibromyalsia, uses a cane when needed. Patient with chest tube removed today. Therapy evals in process. patient reports having HH in past cannot recall agency. He reports HH was arranged from [facility], he has no preference for HH agency at pa. Gave him HH list to review. Therapy evals in process. Tenative plan for pa in am.
--- NOTE | 2020-11-19 16:06 | PATH ---
[facility] [address] [place] [address] PATHOLOGY RPT PROCEDURE Name: RODNEY HANNA Room #: 212-P ADM IN M.R.#: [id number] Admission: 11/15/20 Date of : 36 Discharge: Report #: [id number] Path Case #: [id number] Note LCA Accession Number: [id number] TESTS RESULT FLAG UNITS REF RANGE LAB Clinician Provided Cytology Information No. of containers..01 Other (Miscellaneous) Source: BAL DIAGNOSIS: 02 BAL NEGATIVE FOR MALIGNANT EPITHELIAL CELLS. RARE REACTIVE BRONCHIAL CELLS AND MACROPHAGES ARE PRESENT. PULMONARY MACROPHAGES PRESENT, INDICATIVE OF LOWER RESPIRATORY TRACT SAMPLING. THIS INTERPRETATION INCLUDES EVALUATION OF A CELL BLOCK. ACUTE AND CHRONIC INFLAMMATION. Pathologist ICD10: 02 R91.8 Signed out by: 02 Leslie Hess MD, Pathologist NPI- [id number] Performed by: 01 Shawna Li, Auto Bench Mechanic ([facility]) Gross description: 01 20ML, CLOUDY, BRIGHT RED /LCS 11/18/2020 1907 Local FLAG LEGEND: L-Low Normal,H-High Normal,LL-Alert Low,HH-Alert High <-Panic Low,>-Panic High,A-Abnormal,AA-Critical Abnormal Performed at: [address] [place] [address] Gama Ariza MD, [address] [address] Leslie Hess MD, Specimen Comment: A courtesy copy of this report has been sent to [phone] Specimen Comment: Report sent to Performed at: 01 [facility] [address] [place] [address] [address], [place], [place] [id number] MD Gama Ariza MD Phone: [phone]
[2020-11-19 19:04] VITALS: BP 140/52
[2020-11-20 03:56] VITALS: BP 135/47
[2020-11-20 07:19] VITALS: BP 152/73
--- NOTE | 2020-11-20 08:12 | NUR ---
Patient is hoping to go home today.Pain well controlled.Monitor shows SB.POC continued.
[2020-11-20 10:58] VITALS: BP 152/73
[2020-11-20 11:05] VITALS: BP 152/73
[2020-11-20 11:12] VITALS: BP 134/66
--- NOTE | 2020-11-20 13:47 | NUR ---
ASSESSMENT CHARTED - MEDS PER DEQUAN - JAMIE DIET AND FLUIDS. NO CO'S OF NASUEA. GIVEN HYDROCODONE FOR CO'S OF FIBROMYALGIA PAIN IN ARMS AND HIPS WITH GOOD RELIEF. PT UP IN ROOM - STEADY ON FEET. PT HOME THIS AFTERNOON - INSTRUCTION RE HOME MEDS/ CARE AND FOLLOW UP GIVEN TO PATIENT AND SPOUSE - STATED UNDERSTANDING ON INSTRUCTION GIVEN. PT LEFT UNBIT VIA WHEEL - HOME VIA PVT VEHICLE - NO CO'S AT TIME OF D/C.
--- NOTE | 2020-11-20 15:30 | NUR ---
Patient to dc home with HH care. He has no preference. Agreeable to [facility] care. Nancie castaneda met with patient and has orders. no further needs.
--- NOTE | 2020-11-22 12:06 | PATH ---
[facility] [address] [place] [address] PATHOLOGY RPT PROCEDURE Name: RODNEY HANNA Room #: 212-P DIS IN M.R.#: [id number] Admission: 11/15/20 Date of : 36 Discharge: 11/20/20 Report #: [id number] Path Case #: [id number] LCA Accession Number: [id number] . 01 Material submitted: . lung - RUL BIOPSY TISSUE. Modifiers: right, upper . 01 Clinical history: . BRONCHOSCOPY/PULMONARY INFILTRATE . 02 Diagnosis: Lung, right upper lobe, bronchial biopsy: - Fragments of benign alveolated lung parenchyma. - Mild acute and chronic inflammation with focal subtle fibrotic foci. - Negative for dysplasia or malignancy. (IUV:bed bug exterminator; 11/19/2020) MBR 11/19/2020 1553 Local . 02 Comment: Dr. Radha Gordillo has seen help desk representative slides of this case and concurs with my diagnosis. There is no definite dysplasia or malignancy present within the current sections examined. (IUV:bed bug exterminator; 11/19/2020) . 02 Electronically signed: . Leslie Hess MD, Pathologist NPI- [id number] . 01 Gross description: . The specimen is received in formalin, labeled "Rodney Hanna, BX-RUL". It consists of multiple paiz-brown, irregular soft tissue fragments measuring 0.7 x 0.2 x 0.1 cm in aggregate. The specimen is placed in a biopsy bag and entirely submitted in A1. (MRF; 11/18/2020) MFE/MFE 11/18/2020 1728 Local . 02 Pathologist provided ICD-10: J98.4, J18.9 . 02 CPT . 131576 Specimen Comment: A courtesy copy of this report has been sent to [phone] Specimen Comment: [phone] Specimen Comment: Report sent to / DR HINES Specimen Comment: A duplicate report has been generated due [place] [address] PATHOLOGY RPT PROCEDURE Name: JACQUESRODNEYCHELSY PLUMMER Room #: 212-P DIS IN M.R.#: [id number] Admission: 11/15/20 Date of : 36 Discharge: 11/20/20 Report #: [id number] Path Case #: [id number] Performed at: 01 [facility] [address], [place], [place] [id number] MD Gama Ariza MD Phone: [phone] Performed at: [address] [id number] MD Leslie Hess MD Phone: [phone]
--- NOTE | 2020-11-26 17:06 | PATH ---
[facility] [address] [place] [address] PATHOLOGY RPT PROCEDURE Name: RODNEY HANNA Room #: 212-P DIS IN M.R.#: [id number] Admission: 11/15/20 Date of : 36 Discharge: 11/20/20 Report #: [id number] Path Case #: [id number] Note LCA Accession Number: [id number] TESTS RESULT FLAG UNITS REF RANGE LAB Clinician Provided Cytology Information No. of containers..01 Other (Miscellaneous) Source: RUL BRUSHING DIAGNOSIS: RUL BRUSHING NEGATIVE FOR MALIGNANT CELLS. RARE REACTIVE BRONCHIAL CELLS ARE PRESENT. SCANT CELLULARITY. SPECIMEN PREDOMINANTLY COMPRISED OF BLOOD. Pathologist ICD10: 02 R91.8 Signed out by: 02 Leslie Hess MD, Pathologist NPI- [id number] Performed by: 01 Shwana Li, Disease And Insect Control Boss ([facility]) Gross description: 01 25ML, HAZY, RED TISSUE /LCS 11/18/2020 1913 Local FLAG LEGEND: L-Low Normal,H-High Normal,LL-Alert Low,HH-Alert High <-Panic Low,>-Panic High,A-Abnormal,AA-Critical Abnormal Performed at: [address] [place] [address] Gama Ariza MD, [address] [address] Leslie Hess MD, Specimen Comment: A courtesy copy of this report has been sent to [phone] Specimen Comment: [phone] Specimen Comment: Report sent to / DR HINES Specimen Comment: A duplicate report has been generated due to demographic updates. Performed at: [address], [place], [place] [id number] [address] [address] PATHOLOGY RPT PROCEDURE Name: RODNEY HANNA Room #: 212-P DIS IN M.R.#: [id number] Admission: 11/15/20 Date of : 36 Discharge: 11/20/20 Report #: [id number] Path Case #: [id number] MD Gama Ariza MD Phone: [phone]
== END 2020-11-20 13:40 | disposition home health service (06) | DRG 199 ==
LOC: OR 08:51 → 2N 17:51 → OR 22:32 → 2N 22:33
PROVIDERS: Internal Medicine; Internal Medicine Pulmonary Disease; Nurse Practitioner Family; Student in an Organized Health Care Education/Training Program; ADMIT Hospitalist; ATTEND Pediatrics
PROC: 0W9930Z Drainage of Right Pleural Cavity with Drainage Device, Percutaneous Approach (ICD-10-PCS; 2020-11-15)
PROC: 0BBC3ZX Excision of Right Upper Lung Lobe, Percutaneous Approach, Diagnostic (ICD-10-PCS; 2020-11-15)
PROC: 0BD48ZX Extraction of Right Upper Lobe Bronchus, Via Natural or Artificial Opening Endoscopic, Diagnostic (ICD-10-PCS; 2020-11-15)
PROC: 0B9M8ZX Drainage of Bilateral Lungs, Via Natural or Artificial Opening Endoscopic, Diagnostic (ICD-10-PCS; 2020-11-15)
PROC: 0DJ08ZZ Inspection of Upper Intestinal Tract, Via Natural or Artificial Opening Endoscopic (ICD-10-PCS; principal; 2020-11-17)
DX: J95.811 Postprocedural pneumothorax (principal); J96.00 Acute respiratory failure, unspecified whether with hypoxia or hypercapnia; K22.11 Ulcer of esophagus with bleeding; K92.0 Hematemesis; I48.20 Chronic atrial fibrillation, unspecified; K86.2 Cyst of pancreas; J98.4 Other disorders of lung; I10 Essential (primary) hypertension; N40.0 Benign prostatic hyperplasia without lower urinary tract symptoms; E78.00 Pure hypercholesterolemia, unspecified; K21.9 Gastro-esophageal reflux disease without esophagitis; M35.3 Polymyalgia rheumatica; I48.0 Paroxysmal atrial fibrillation; I35.2 Nonrheumatic aortic (valve) stenosis with insufficiency; I25.10 Atherosclerotic heart disease of native coronary artery without angina pectoris; R91.8 Other nonspecific abnormal finding of lung field; Z87.442 Personal history of urinary calculi; Z98.42 Cataract extraction status, left eye; Z98.41 Cataract extraction status, right eye; Z90.49 Acquired absence of other specified parts of digestive tract; Z87.891 Personal history of nicotine dependence; Z79.01 Long term (current) use of anticoagulants; Z20.822 Contact with and (suspected) exposure to COVID-19
CPT/HCPCS: 10081; 50010; 62110; 62900; 70005

== ENCOUNTER → 2020-12-20 | Outpatient (CLI) | payer OTHER, BC | END | disposition home or self-care (01) | LOC: SJCVC 10:58 | PROVIDERS: ATTEND Internal Medicine | DX: I49.8 Other specified cardiac arrhythmias (principal); I48.0 Paroxysmal atrial fibrillation; I25.10 Atherosclerotic heart disease of native coronary artery without angina pectoris; I35.9 Nonrheumatic aortic valve disorder, unspecified; I10 Essential (primary) hypertension; I65.23 Occlusion and stenosis of bilateral carotid arteries; E78.5 Hyperlipidemia, unspecified; K20.90 Esophagitis, unspecified without bleeding; G47.33 Obstructive sleep apnea (adult) (pediatric); E03.9 Hypothyroidism, unspecified; Z87.891 Personal history of nicotine dependence; Z72.89 Other problems related to lifestyle; Z79.01 Long term (current) use of anticoagulants; Z79.899 Other long term (current) drug therapy; Z98.890 Other specified postprocedural states; Z82.49 Family history of ischemic heart disease and other diseases of the circulatory system ==

== ENCOUNTER → 2021-01-14 | Outpatient (CLI) | payer OTHER, BC | LOC: LAB 05:39 | PROVIDERS: ATTEND Student in an Organized Health Care Education/Training Program | DX: Z01.812 Encounter for preprocedural laboratory examination (principal); Z20.822 Contact with and (suspected) exposure to COVID-19 ==

== ENCOUNTER → 2021-01-20 | Outpatient (CLI) | payer OTHER, BC ==
[~2021-01-20] VITALS: Ht 165.1 cm; Wt 83.9 kg
--- NOTE | 2021-01-22 13:08 | PATH ---
[facility] [address] [place] [address] PATHOLOGY RPT PROCEDURE Name: RODNEY HANNA Room #: REG CL M.R.#: [id number] Admission: 01/20/21 Date of : 36 Discharge: Report #: [id number] Path Case #: [id number] LCA Accession Number: [id number] . 01 Material submitted: . PART A: esophagus - DISTAL ESOPHAGEAL BIOPSY- R/O ALBERT'S. Modifiers: distal PART B: colon - ASCENDING COLON POLYPS X2. Modifiers: ascending, X2 PART C: colon - TRANSVERSE COLON POLYP. Modifiers: transverse PART D: colon - DESCENDING COLON POLYP. Modifiers: descending PART E: rectum - RECTAL POLYP . 01 Clinical history: . ESOPHAGOGASTRODUODENOSCOPY GERD, GRADE D ESOPHAGITIS, HX POLYP ALBERT'S ESOPHAGUS, DIVERTICULOSIS, COLON POLYPS . 02 Diagnosis: A. Distal esophagus, biopsy: - Squamous mucosa with features of mild reflux esophagitis. - No glandular mucosa identified. . B. Ascending colon polyps x2, polypectomy: - Fragments of tubular adenomas. - Negative for high grade dysplasia or malignancy. . C. Transverse colon polyp, polypectomy: - Fragments of tubular adenoma. - Negative for high grade dysplasia or malignancy. . D. Descending colon polyp, polypectomy: - Tubular adenoma. - Negative for high grade dysplasia or malignancy. . E. Rectal polyp, polypectomy: - Tubular adenoma. - Negative for high grade dysplasia or malignancy. . (ANK:mmamari; 01/22/2021) [facility] 01/22/2021 1118 Local . 02 Electronically signed: . Radha Gordillo MD, Pathologist NPI- [id number] . 01 Gross description: . A. The specimen is received in formalin, labeled "Rodney Hanna, distal [facility] [address] [place] [address] PATHOLOGY RPT PROCEDURE Name: RODNEY HANNA KAVITHA Room #: REG CLI Yessica#: [id number] Admission: 01/20/21 Date of : 36 Discharge: Report #: [id number] Path Case #: [id number] esophageal BX-R/O Albert's" and consists of a paiz irregular tissue measuring 0.4 x 0.2 x 0.1 cm which is submitted in toto in A1. . B. The specimen is received in formalin, labeled "Rodney Hanna, ascending colon polyps" and consists of multiple paiz irregular tissues aggregating 1.3 x 1.1 x 0.3 cm which are submitted in toto in B1. . C. The specimen is received in formalin, labeled "Green, Rodney, transverse colon polyp" and consists of multiple paiz irregular tissues aggregating 0.6 x 0.6 x 0.2 cm which are submitted in toto in C1. . D. The specimen is received in formalin, labeled "Green, Rodney, descending colon polyp" and consists of a paiz irregular tissue measuring 0.5 x 0.4 x 0.2-0 which is submitted in toto in D1. . E. The specimen is received in formalin, labeled "Green, Rodney, rectal polyp" and consists of 2 paiz irregular tissues aggregating 0.5 x 0.5 x 0.2 cm which are submitted in toto in E1. (TRIBE; 01/21/2021) DKA/DKA 01/21/2021 1013 Local . 02 Pathologist provided ICD-10: D12.2, D12.3, D12.4, D12.8 . 02 CPT . 388407, 416996, 361228, 552427, 587210 Specimen Comment: A courtesy copy of this report has been sent to [phone] Specimen Comment: [phone] Specimen Comment: Report sent to / DR HINES Performed at: [address], [place] [id number] MD Gama Ariza MD Phone: [phone] Performed at: [address] [id number] MD Leslie Hess MD Phone: [phone]
== END | disposition home or self-care (01) ==
LOC: GI 09:27
PROVIDERS: ATTEND Internal Medicine Gastroenterology
DX: Z12.11 Encounter for screening for malignant neoplasm of colon (principal); Z86.010 Personal history of colon polyps; D12.2 Benign neoplasm of ascending colon; D12.3 Benign neoplasm of transverse colon; D12.4 Benign neoplasm of descending colon; D12.8 Benign neoplasm of rectum; K57.30 Diverticulosis of large intestine without perforation or abscess without bleeding; K64.8 Other hemorrhoids; K21.00 Gastro-esophageal reflux disease with esophagitis, without bleeding; K44.9 Diaphragmatic hernia without obstruction or gangrene; I10 Essential (primary) hypertension; E78.00 Pure hypercholesterolemia, unspecified; E03.9 Hypothyroidism, unspecified; I48.0 Paroxysmal atrial fibrillation; N40.0 Benign prostatic hyperplasia without lower urinary tract symptoms; Z98.890 Other specified postprocedural states; Z79.899 Other long term (current) drug therapy; Z98.41 Cataract extraction status, right eye; Z98.42 Cataract extraction status, left eye
CPT/HCPCS: 62110; 62900

== ENCOUNTER → 2021-01-29 | Outpatient (CLI) | payer OTHER, BC | LOC: CAT 01-22 12:15 | PROVIDERS: ATTEND Pediatrics | DX: I77.810 Thoracic aortic ectasia (principal); K76.0 Fatty (change of) liver, not elsewhere classified; N20.0 Calculus of kidney; R91.8 Other nonspecific abnormal finding of lung field; R91.1 Solitary pulmonary nodule ==

== ENCOUNTER → 2021-02-10 | Outpatient (CLI) | payer OTHER, BC ==
[~2021-02-10] MED LIST changes: +PROTONIX40 M2 PO
== END ==
LOC: PET 13:38
PROVIDERS: ATTEND Internal Medicine
DX: R91.8 Other nonspecific abnormal finding of lung field (principal); K76.0 Fatty (change of) liver, not elsewhere classified; K80.20 Calculus of gallbladder without cholecystitis without obstruction; N32.89 Other specified disorders of bladder; N40.0 Benign prostatic hyperplasia without lower urinary tract symptoms; M19.011 Primary osteoarthritis, right shoulder; M19.012 Primary osteoarthritis, left shoulder

== ENCOUNTER → 2021-03-03 | Outpatient (CLI) | payer OTHER, BC ==
[~2021-03-03] VITALS: Ht 162.6 cm; Wt 86.2 kg
--- NOTE | 2021-03-04 07:26 | EKG ---
[place] [address] [place] [address] ELECTROCARDIOGRAM REPORT Name: RODNEY HANNA Room #: REG CLI [facility].#: [id number] Admission: 03/03/21 Attend Phys: Alva Decker Discharge: Date of : 36 Report #: [id number] [facility] Test Date: 2021-03-03 Test Time: 09:42:52 Pat Name: RODNEY HANNA Department: Room: Gender: M International Banker: CAPO : 1940 Requested By: Anel Robb Order Number: [id number] MD: Anmol Miner Measurements Intervals Ajo Rate: 43 P: 0 CT: 73 QRS: 36 QRSD: 87 T: 35 QT: 495 QTc: 419 Interpretive Statements Suspect AFIB Borderline low voltage, extremity leads Compared to ECG 11/18/2020 05:48:[address] interval now present Sinus rhythm no longer present Atrial premature complex(es) no longer present Sinus pause or arrest no longer present First degree AV block no longer present Electronically Signed On 03-04-2021 7:26:13 COMMUNITY SERVICE OFFICER by Anmol Miner [email or web address] <ELECTRONICALLY SIGNED> By: Anmol Miner MD, FACC 03/04/21 0726 0942 0942 Anmol Miner MD, [facility] /EPI
== END | disposition home or self-care (01) ==
LOC: GI 07:25
PROVIDERS: ATTEND Internal Medicine Gastroenterology
DX: R10.9 Unspecified abdominal pain (principal); Z53.8 Procedure and treatment not carried out for other reasons; Z20.822 Contact with and (suspected) exposure to COVID-19; I10 Essential (primary) hypertension; I48.91 Unspecified atrial fibrillation; K21.9 Gastro-esophageal reflux disease without esophagitis; E78.5 Hyperlipidemia, unspecified; E03.9 Hypothyroidism, unspecified; N40.0 Benign prostatic hyperplasia without lower urinary tract symptoms; Z79.899 Other long term (current) drug therapy; Z98.890 Other specified postprocedural states; Z87.891 Personal history of nicotine dependence; Z87.442 Personal history of urinary calculi

== ENCOUNTER → 2021-04-01 | Outpatient (CLI) | payer OTHER, BC ==
[~2021-04-01] VITALS: Ht 162.6 cm; Wt 85.7 kg
[2021-04-01 09:18] VITALS: BP 147/60
[2021-04-01 09:18] LABS: HEMATOCRIT 35.9 % (42.0-52.0); HEMOGLOBIN 12.3 gm/dL (14.0-18.0); MCH 33.9 pg (26.0-34.0); MCHC 34.3 g/dL (28.0-37.0); MCV 98.8 fL (80.0-100.0); RBC 3.64 mil/uL (4.50-6.00); RDW 14.8 % (10.5-14.5); WBC 5.2 thou/uL (4.0-11.0)
[2021-04-01 09:33] LABS: APTT 27.1 Seconds (24.5-32.8); INR 1.01
[2021-04-01 13:30] VITALS: BP 148/88
--- NOTE | 2021-04-07 14:07 | PATH ---
[facility] [address] [place] [address] PATHOLOGY RPT PROCEDURE Name: RODNEY HANNA Room #: REG CL M.R.#: [id number] Admission: 04/01/21 Date of : 36 Discharge: Report #: [id number] Path Case #: [id number] LCA Accession Number: [id number] . 01 Material submitted: . body - HNA TO IO . 01 Diagnosis: Special studies report received from [facility], [address] [place] [address], [address], [place], [address], on case [id number], labeled with their number [id number], dated 04/03/2021. . Flow Cytometry: Hematologic Neoplasia Assessment . Clinical History . . Indication For Study Evaluation for hematolymphoid neoplasia . Specimen Tissue, Lung . Viability 80% (7AAD exclusion) . Interpretation Tissue, Lung: No significant lymphoid immunophenotypic abnormalities detected . Comments Correlation with available clinical, laboratory, and morphologic data is recommended. . Populations Analyzed Lymphocytes: 9% B-cells: 0.1%, polytypic/polyclonal sIg light chain pattern T-cells: no significant abnormalities of the markers tested CD4:CD8: 4.3 NK cells: 2.3% Granulocytes: 53% Present Monocytes/ 3% Present Histiocytes: CD45 Negative 35% No significant reactivity with the markers tested Events/Debris: (may represent non-hematolymphoid cells, degenerated cells, debris, unlysed red blood cells, etc.) . [address] [address] PATHOLOGY RPT PROCEDURE Name: RODNEY HANNA Room #: REG CLI Korina.#: [id number] Admission: 04/01/21 Date of : 36 Discharge: Report #: [id number] Path Case #: [id number] Morphologic Evaluation A slide was reviewed for senior quality assurance engineer purposes only. . Specimen Description Cell Yield: 0.41 x 10 and 6 . Reagent(s) Used CD2, CD3, CD4, CD5, CD7, CD8, CD10, CD11b, CD19, CD20, CD23, CD30, CD38, CD43, CD45, CD56, CD57, FMC-7, HLA-DR, kappa, lambda . at [employer]. Cecile Dumont MD Hematopathologist . Intended Use Flow cytometry is optimally used to immunophenotypically characterize abnormal populations when they are detected. Negative flow cytometry results do not exclude lymphoma or neoplasia. Possible false negative flow cytometry results may occur in, but are not limited to, the following: neoplastic cells in Hodgkin lymphoma are not typically adequately represented by routine clinical flow cytometry; neoplastic cells may be lost or inadequately represented due to degeneration, sample processing, sampling artifact, or patchy involvement; plasma cells are typically underrepresented by flow cytometry; immature cells/blasts may be underrepresented due to hemodilution; myeloproliferative disorders and low grade myelodysplasia may not have immunophenotypic abnormalities or increased blasts. Correlation with all available clinical, laboratory, and morphologic data is always necessary to assess for the possibility of false negative flow cytometry results and to establish a diagnosis. Each marker in this analysis was used to assess for potential antigenic abnormalities or to evaluate detected abnormalities. . Any image or images that accompany this report are kiosk sales representative images only and should not be used to render a diagnosis. . Disclaimer(s) This test was developed and its performance characteristics determined by [employer] [place]. It has not been cleared or approved by the Food and Drug Administration. . [facility] is a business unit of [employer] a wholly-owned subsidiary of [employer]. . This test was performed at [employer]. at [address], [address] - Film Drying Machine Operator: Abbe [address] [address] PATHOLOGY RPT PROCEDURE Name: RODNEY HANNA Room #: REG OSIRIS Juan#: [id number] Admission: 04/01/21 Date of : 36 Discharge: Report #: [id number] Path Case #: [id number] MD Anjana. . For inquiries, the physician may contact Lab: [phone] . A complete copy of the report is on file. . Professional services performed by [employer]. at [address], [place] [address]. Technical services performed by [employer] at [address], [place] [address]. . (SHA:[facility] 04/03/2021) . [facility] 04/03/2021 1608 Local . 01 Electronically signed: . Gama Ariza MD, Pathologist NPI- [id number] . 01 Gross description: . The specimen is received in RPMI, labeled "Rodney Herbert, lung". It consists of multiple irregularly shaped, shaggy, fragments of paiz-brown to red, tissue, ranging in size from 0.2-1.0 cm, greatest dimension. The specimen is sent to sendouts for further testing. (JGG; 04/01/2021) JGG/J 04/01/2021 1407 Local . 01 Pathologist provided ICD-10: R91.8 . 01 CPT . 182803 Specimen Comment: A courtesy copy of this report has been sent to [phone] Specimen Comment: Report sent to Specimen Comment: A duplicate report has been generated due to demographic updates. Performed at: 01 [facility] [address], [place] [id number] MD Gama Ariza MD Phone: [phone]
== END | disposition home or self-care (01) ==
LOC: CAT 07:41
PROVIDERS: Radiology Vascular & Interventional Radiology; ATTEND Internal Medicine
DX: R91.8 Other nonspecific abnormal finding of lung field (principal); I10 Essential (primary) hypertension; N40.0 Benign prostatic hyperplasia without lower urinary tract symptoms; I48.91 Unspecified atrial fibrillation; E78.5 Hyperlipidemia, unspecified; E03.9 Hypothyroidism, unspecified; K21.9 Gastro-esophageal reflux disease without esophagitis; Z98.890 Other specified postprocedural states; Z79.899 Other long term (current) drug therapy; Z79.01 Long term (current) use of anticoagulants; Z90.49 Acquired absence of other specified parts of digestive tract; Z98.41 Cataract extraction status, right eye; Z98.42 Cataract extraction status, left eye; Z87.442 Personal history of urinary calculi